=== PATIENT | female | born 1955 | race Caucasian/White ===

== ENCOUNTER 2020-06-26 11:33 | Emergency (ER) | payer MEDICARE, BC, SELFPAY ==
[2020-06-26 11:40] VITALS: BP 132/102; PULSE 92; RESP 14; TEMP 36.6; O2SAT 98; BMI 36.1
--- NOTE | 2020-06-26 11:45 | DI.RAD.S_ITS ---
PROCEDURE: XR CHEST 1V INDICATIONS: chest pain TECHNIQUE: One view of the chest was acquired. COMPARISON: None. FINDINGS: Surgical changes and devices: None. Lungs and pleura: Lungs are clear. No pleural effusions or pneumothorax. Mediastinum: Mediastinal contours appear normal. Heart size is normal. Bones and chest wall: No suspicious bony lesions. Overlying soft tissues appear unremarkable. IMPRESSION: No acute cardiopulmonary abnormalities or focal airspace disease. Dictated by: Shivam Joe M.D. on 06/26/2020 at 11:02 Approved by: Shivam Joe M.D. on 06/26/2020 at 11:03
[2020-06-26 11:59] LABS: Add Manual Diff / Slide Review NO; Basophils Absolute Auto 0 /uL (0-100); Basophils Percent Auto 0.5 % (0-2); Eosinophils Absolute Auto 100 /uL (0-450); Eosinophils Percent Auto 0.7 % (2-4); Hematocrit 45.6 % (36-46); Hemoglobin 15.5 g/dL (12.0-16.0); Lymphocytes Absolute Auto 2100 /uL (1100-4500); Lymphocytes Percent Auto 27.3 % (25-40); Mean Corpuscular HGB Conc 33.9 % (30-36); Mean Corpuscular Hemoglobin 31.5 PG (26-34); Mean Corpuscular Volume 92.9 fL (80-100); Monocytes Absolute Auto 500 /uL (0-900); Monocytes Percent Auto 6.8 % (3-14); Neutrophils Absolute Auto 4900 /uL (1500-7000); Neutrophils Percent Auto 64.7 % (50-75); Platelet Count 251 X10^3/uL (150-400); Red Blood Cell Count 4.91 X10^6/uL (4.0-5.2); Red Cell Distribution Width 13.4 % (11.6-14.8); White Blood Cell Count 7.5 X10^3/uL (4.5-11.0)
[2020-06-26 12:00] LABS: Prothrombin Time 11.8 SECONDS (10.1-12.7)
[2020-06-26 12:03] LABS: PTT Partial Thromboplastin Tim 29 SECONDS (26.4-36.2)
[2020-06-26 12:04] LABS: Alanine Aminotransferase 43 IU/L (<35); Albumin 4.5 g/dL (3.5-5.0); Albumin Globulin Ratio 1.6 (1.0-2.8); Alkaline Phosphatase 138 U/L (38-126); Aspartate Aminotransferase 46 IU/L (14-36); BUN Creatinine Ratio 21.2 (6-22); Bilirubin Total 0.8 mg/dL (0.2-1.3); Blood Urea Nitrogen 14 mg/dL (7-17); Calcium 9.9 mg/dL (8.4-10.2); Carbon Dioxide 28 mmol/L (22-32); Chloride 102 mmol/L (98-107); Creatine Kinase 117 U/L (30-135); Estimated Glomerular Filt Rate > 60.0 mL/min (>60); Globulin 2.9 g/dL (1.7-4.1); Glucose 118 mg/dL (80-110); Lipase 40 U/L (23-300); Potassium 4.2 mmol/L (3.4-5.1); Sodium 136 mmol/L (137-145); Total Protein 7.4 g/dL (6.3-8.2)
[2020-06-26 12:05] LABS: HEMOLYSIS < 15 (0-50)
[2020-06-26 12:18] LABS: Troponin I < 0.012 ng/mL (0.01-0.034)
[2020-06-26 12:19] LABS: CKMB % Relative Index 1.8 % (1.5-5.0); Creatine Kinase MB 2.12 ng/mL (<2.37)
[2020-06-26 12:24] VITALS: BP 132/102; PULSE 79; RESP 23; O2SAT 96
[2020-06-26 14:08] LABS: Troponin I < 0.012 ng/mL (0.01-0.034)
--- NOTE | 2020-06-26 14:15 | ED_ITS ---
HPI - Chest Pain <Lorenzo Watts DO - Last Filed: 06/28/20 00:12> General Chief Complaint: Chest Pain Stated Complaint: right sided chest pain Time Seen by Provider: 06/26/20 14:13 Source: patient Mode of arrival: Ambulatory Limitations: no limitations Related Data Allergies Allergy/AdvReac Type Severity Reaction Status Date / Time bacitracin Allergy Verified 06/26/20 11:46 [From Neosporin ([id number])] doxycycline Allergy Verified 06/26/20 11:46 neomycin Allergy Verified 06/26/20 11:46 [From Neosporin ([id number])] polymyxin B Allergy Verified 06/26/20 11:46 [From Neosporin ([id number])] <Mary Beth Jackson DO - Last Filed: 06/26/20 18:56> General Source: patient Mode of arrival: Ambulatory Limitations: no limitations History of Present Illness HPI narrative: This is a 65-year-old female comes with complaint of right-sided chest pain. Patient states that her pain is in the right axilla, radiating towards her anterior chest. Patient states she did have a fall on Tuesday. She bruised her leg after falling on a rock but has not had any chest pain in her chest until today. Patient did not think that she hit her chest or cause any injury. She does have a history of pulmonary embolism which was unprovoked with no clear cause found. She is not currently anticoagulated. Patient states that she has pleuritic chest pain, it is increased with movement particularly her right upper extremity and chest movement. She denies any fevers or chills. She has felt mildly short of breath particularly when she takes a deep breath but when resting does not feel short of breath. She denies any back pain. No nausea, no vomiting, no diaphoresis. No GI or urinary symptoms. The patient is on AcipHex for GERD losartan for hypertension and my bed trich for her urinary. Patient is not on any estrogens. She denies any tobacco. She has a history of cholecystectomy, left knee surgery in December. She does have a significant family history for father dying from a heart attack in his 40s as well as her sister and brother having heart attacks. <DO Julito Schmitt Last Filed: 06/26/20 18:56> Review of Systems ROS Unobtainable: All systems reviewed & are unremarkable except as noted in HPI and below Patient History <Lorenzo Watts DO - Last Filed: 06/28/20 00:12> Social History Smoking Status: Unknown if ever smoked Smoking Status: Unknown if ever smoked alcohol intake frequency: 0-2 drinks per day Substance Use Type: does not use Exam <Lorenzo Watts DO - Last Filed: 06/28/20 00:12> Initial Vital Signs Initial Vital Signs: Vital Signs Temperature 97.8 F 06/26/20 11:40 Pulse Rate 92 H 06/26/20 11:40 Respiratory Rate 14 06/26/20 11:40 Blood Pressure 132/102 H 06/26/20 11:40 Pulse Oximetry 98 06/26/20 11:40 <Mary Beth Jackson DO - Last Filed: 06/26/20 18:56> Narrative Exam Narrative: GENERAL: Alert and oriented x three, well-nourished female in m ild distress HEENT: Head normocephalic, atraumatic, EOMI, pupils reactive, face symmetric, moist mucous membranes NECK: Supple, full range of motion CARDIOVASCULAR: Regular rate and rhythm without murmurs, rubs or gallops. Patient has reproducible anterior chest pain on the right upper chest. RESPIRATORY: Breath sounds equal bilaterally, no wheezes rales or rhonchi. ABDOMEN: Soft, nontender. Normoactive bowel sounds all 4 quadrants. No guarding or rebound, rigidity, no mass : No CVA tenderness EXTREMITIES: Normal range of motion, no clubbing or edema. Neurovascularly intact NEUROLOGICAL: Cranial nerves II through XII grossly intact. Moving all extremities SKIN: Warm, dry, no petechiae, no rashes or lesions. Initial Vital Signs Initial Vital Signs: Vital Signs Temperature 97.8 F 06/26/20 11:40 Pulse Rate 92 H 06/26/20 11:40 Respiratory Rate 14 06/26/20 11:40 Blood Pressure 132/102 H 06/26/20 11:40 Pulse Oximetry 98 06/26/20 11:40 Course <DO Julito Vargas Last Filed: 06/28/20 00:12> Orders Ordered: Discontinued Medications Acetaminophen (Acetaminophen 325 Mg Tablet) 650 mg PO NOW ONE Stop: 04/22/21 14:51 Last Admin: 06/26/20 14:55 Dose: 650 mg Documented by: PRINCESS Vital Signs Vital signs: Vital Signs - 8 hr 06/26/20 11:40 06/26/20 12:24 06/26/20 15:05 Temperature 97.8 F Pulse Rate 92 H 79 85 Respiratory Rate 14 23 28 H Blood Pressure 132/102 H 132/102 H 188/81 H Pulse Oximetry 98 96 96 06/26/20 16:11 06/26/20 16:33 Temperature Pulse Rate 75 80 Respiratory Rate 16 16 Blood Pressure 168/75 H 177/74 H Pulse Oximetry 96 97 <Mary Beth Jackson DO - Last Filed: 06/26/20 18:56> Orders Ordered: Discontinued Medications Acetaminophen (Acetaminophen 325 Mg Tablet) 650 mg PO NOW ONE Stop: 06/26/20 14:51 Last Admin: 06/26/20 14:55 Dose: 650 mg Documented by: PRINCESS Reevaluation(s) Reevaluation #1: Reviewed patients labs, imaging and findings from today. Time: 16:18 Vital Signs Vital signs: Vital Signs - 8 hr 06/26/20 11:40 06/26/20 12:24 06/26/20 15:05 Temperature 97.8 F Pulse Rate 92 H 79 85 Respiratory Rate 14 23 28 H Blood Pressure 132/102 H 132/102 H 188/81 H Pulse Oximetry 98 96 96 06/26/20 16:11 06/26/20 16:33 Temperature Pulse Rate 75 80 Respiratory Rate 16 16 Blood Pressure 168/75 H 177/74 H Pulse Oximetry 96 97 MDM - Chest Pain <Lorenzo Watts DO - Last Filed: 06/28/20 00:12> Lab Data Result diagrams: 06/26/20 11:45 06/26/20 11:45 Labs: Lab Results 06/26/20 06/26/20 06/26/20 Range/Units 11:45 11:45 11:45 WBC 7.5 (4.5-11.0) X10^3/uL RBC 4.91 (4.0-5.2) X10^6/uL Hgb 15.5 (12.0-16.0) g/dL Hct 45.6 (36-46) % MCV 92.9 (80-100) fL MCH 31.5 (26-34) PG MCHC 33.9 (30-36) % RDW 13.4 (11.6-14.8) % Plt Count 251 (150-400) X10^3/uL Neut % (Auto) 64.7 (50-75) % Lymph % (Auto) 27.3 (25-40) % [place] % (Auto) 6.8 (3-14) % Eos % (Auto) 0.7 L (2-4) % Baso % (Auto) 0.5 (0-2) % Neut # (Auto) 4900 (0157-5813) /uL Lymph # (Auto) 2100 (6435-8236) /uL [place] # (Auto) 500 (0-900) /uL Eos # (Auto) 100 (0-450) /uL Baso # (Auto) 0 (0-100) /uL PT 11.8 (10.1-12.7) SECONDS INR 1.0 (0.9-1.3) APTT 29 (26.4-36.2) SECONDS D-Dimer (<230) ng/mL Sodium 136 L (137-145) mmol/L Potassium 4.2 (3.4-5.1) mmol/L Chloride 102 (98-107) mmol/L Carbon Dioxide 28 (22-32) mmol/L BUN 14 (7-17) mg/dL Creatinine 0.66 (0.52-1.04) mg/dL Estimated GFR > 60.0 (>60) mL/min BUN/Creatinine Ratio 21.2 (6-22) Glucose 118 H (80-110) mg/dL Calcium 9.9 (8.4-10.2) mg/dL Total Bilirubin 0.8 (0.2-1.3) mg/dL AST 46 H (14-36) IU/L ALT 43 H (<35) IU/L Alkaline Phosphatase 138 H (38-126) U/L Total Creatine Kinase 117 (30-135) U/L CK-MB (CK-2) 2.12 (<2.37) ng/mL CK-MB (CK-2) Rel Index 1.8 (1.5-5.0) % Troponin I < 0.012 (0.01-0.034) ng/mL Total Protein 7.4 (6.3-8.2) g/dL Albumin 4.5 (3.5-5.0) g/dL Globulin 2.9 (1.7-4.1) g/dL Albumin/Globulin Ratio 1.6 (1.0-2.8) Lipase 40 (23-300) U/L 06/26/20 06/26/20 Range/Units 11:53 13:40 WBC (4.5-11.0) X10^3/uL RBC (4.0-5.2) X10^6/uL Hgb (12.0-16.0) g/dL Hct (36-46) % MCV (80-100) fL MCH (26-34) PG MCHC (30-36) % RDW (11.6-14.8) % Plt Count (150-400) X10^3/uL Neut % (Auto) (50-75) % Lymph % (Auto) (25-40) % [place] % (Auto) (3-14) % Eos % (Auto) (2-4) % Baso % (Auto) (0-2) % Neut # (Auto) (4586-4019) /uL Lymph # (Auto) (6692-3402) /uL [place] # (Auto) (0-900) /uL Eos # (Auto) (0-450) /uL Baso # (Auto) (0-100) /uL PT (10.1-12.7) SECONDS INR (0.9-1.3) APTT (26.4-36.2) SECONDS D-Dimer 1389 H (<230) ng/mL Sodium (137-145) mmol/L Potassium (3.4-5.1) mmol/L Chloride (98-107) mmol/L Carbon Dioxide (22-32) mmol/L BUN (7-17) mg/dL Creatinine (0.52-1.04) mg/dL Estimated GFR (>60) mL/min BUN/Creatinine Ratio (6-22) Glucose (80-110) mg/dL Calcium (8.4-10.2) mg/dL Total Bilirubin (0.2-1.3) mg/dL AST (14-36) IU/L ALT (<35) IU/L Alkaline Phosphatase (38-126) U/L Total Creatine Kinase (30-135) U/L CK-MB (CK-2) (<2.37) ng/mL CK-MB (CK-2) Rel Index (1.5-5.0) % Troponin I < 0.012 (0.01-0.034) ng/mL Total Protein (6.3-8.2) g/dL Albumin (3.5-5.0) g/dL Globulin (1.7-4.1) g/dL Albumin/Globulin Ratio (1.0-2.8) Lipase (23-300) U/L Imaging Data Chest x-ray: Radiologist's Impression: [address] [id number] ReportSigned Patient: Kajal Hanley#: [id number]: 3Acct:[id number]/Sex: 65 / FDate of Service: 06/26/20Loc: EDAccession Number: [id number] Procedure: XR chest 1V Ordering Provider: Mary Beth Jackson D.O. PROCEDURE: XR CHEST 1V INDICATIONS: chest pain TECHNIQUE: One view of the chest was acquired. COMPARISON: None. FINDINGS: Surgical changes and devices: None. Lungs and pleura: Lungs are clear. No pleural effusions or pneumothorax. Mediastinum: Mediastinal contours appear normal. Heart size is normal. Bones and chest wall: No suspicious bony lesions. Overlying soft tissues appear unremarkable. IMPRESSION: No acute cardiopulmonary abnormalities or focal airspace disease. Dictated by: Shivam Joe M.D. on 06/26/2020 at 11:02 Approved by: Shivam Joe M.D. on 06/26/2020 at 11:03 <Mary Beth Jackson, - Last Filed: 06/26/20 18:56> Lab Data Attestation: I reviewed the patient's lab results. Labs: Lab Results 06/26/20 06/26/20 06/26/20 Range/Units 11:45 11:45 11:45 WBC 7.5 (4.5-11.0) X10^3/uL RBC 4.91 (4.0-5.2) X10^6/uL Hgb 15.5 (12.0-16.0) g/dL Hct 45.6 (36-46) % MCV 92.9 (80-100) fL MCH 31.5 (26-34) PG MCHC 33.9 (30-36) % RDW 13.4 (11.6-14.8) % Plt Count 251 (150-400) X10^3/uL Neut % (Auto) 64.7 (50-75) % Lymph % (Auto) 27.3 (25-40) % [place] % (Auto) 6.8 (3-14) % Eos % (Auto) 0.7 L (2-4) % Baso % (Auto) 0.5 (0-2) % Neut # (Auto) 4900 (7789-8977) /uL Lymph # (Auto) 2100 (9397-0269) /uL [place] # (Auto) 500 (0-900) /uL Eos # (Auto) 100 (0-450) /uL Baso # (Auto) 0 (0-100) /uL PT 11.8 (10.1-12.7) SECONDS INR 1.0 (0.9-1.3) APTT 29 (26.4-36.2) SECONDS D-Dimer (<230) ng/mL Sodium 136 L (137-145) mmol/L Potassium 4.2 (3.4-5.1) mmol/L Chloride 102 (98-107) mmol/L Carbon Dioxide 28 (22-32) mmol/L BUN 14 (7-17) mg/dL Creatinine 0.66 (0.52-1.04) mg/dL Estimated GFR > 60.0 (>60) mL/min BUN/Creatinine Ratio 21.2 (6-22) Glucose 118 H (80-110) mg/dL Calcium 9.9 (8.4-10.2) mg/dL Total Bilirubin 0.8 (0.2-1.3) mg/dL AST 46 H (14-36) IU/L ALT 43 H (<35) IU/L Alkaline Phosphatase 138 H (38-126) U/L Total Creatine Kinase 117 (30-135) U/L CK-MB (CK-2) 2.12 (<2.37) ng/mL CK-MB (CK-2) Rel Index 1.8 (1.5-5.0) % Troponin I < 0.012 (0.01-0.034) ng/mL Total Protein 7.4 (6.3-8.2) g/dL Albumin 4.5 (3.5-5.0) g/dL Globulin 2.9 (1.7-4.1) g/dL Albumin/Globulin Ratio 1.6 (1.0-2.8) Lipase 40 (23-300) U/L 06/26/20 06/26/20 Range/Units 11:53 13:40 WBC (4.5-11.0) X10^3/uL RBC (4.0-5.2) X10^6/uL Hgb (12.0-16.0) g/dL Hct (36-46) % MCV (80-100) fL MCH (26-34) PG MCHC (30-36) % RDW (11.6-14.8) % Plt Count (150-400) X10^3/uL Neut % (Auto) (50-75) % Lymph % (Auto) (25-40) % [place] % (Auto) (3-14) % Eos % (Auto) (2-4) % Baso % (Auto) (0-2) % Neut # (Auto) (6015-3513) /uL Lymph # (Auto) (8869-9956) /uL [place] # (Auto) (0-900) /uL Eos # (Auto) (0-450) /uL Baso # (Auto) (0-100) /uL PT (10.1-12.7) SECONDS INR (0.9-1.3) APTT (26.4-36.2) SECONDS D-Dimer 1389 H (<230) ng/mL Sodium (137-145) mmol/L Potassium (3.4-5.1) mmol/L Chloride (98-107) mmol/L Carbon Dioxide (22-32) mmol/L BUN (7-17) mg/dL Creatinine (0.52-1.04) mg/dL Estimated GFR (>60) mL/min BUN/Creatinine Ratio (6-22) Glucose (80-110) mg/dL Calcium (8.4-10.2) mg/dL Total Bilirubin (0.2-1.3) mg/dL AST (14-36) IU/L ALT (<35) IU/L Alkaline Phosphatase (38-126) U/L Total Creatine Kinase (30-135) U/L CK-MB (CK-2) (<2.37) ng/mL CK-MB (CK-2) Rel Index (1.5-5.0) % Troponin I < 0.012 (0.01-0.034) ng/mL Total Protein (6.3-8.2) g/dL Albumin (3.5-5.0) g/dL Globulin (1.7-4.1) g/dL Albumin/Globulin Ratio (1.0-2.8) Lipase (23-300) U/L Imaging Data Chest x-ray: Radiologist's Impression: [address] [id number] ReportSigned Patient: Kajal Hanley#: [id number]: 1955cct:[id number]/Sex: 4 7 / FDate of Service: 06/26/20Loc: EDAccession Number: [id number] Procedure: XR chest 1V Ordering Provider: Mary Beth Jackson D.O. PROCEDURE: XR CHEST 1V INDICATIONS: chest pain TECHNIQUE: One view of the chest was acquired. COMPARISON: None. FINDINGS: Surgical changes and devices: None. Lungs and pleura: Lungs are clear. No pleural effusions or pneumothorax. Mediastinum: Mediastinal contours appear normal. Heart size is normal. Bones and chest wall: No suspicious bony lesions. Overlying soft tissues appear unremarkable. IMPRESSION: No acute cardiopulmonary abnormalities or focal airspace disease. Dictated by: Shivam Joe M.D. on 06/26/2020 at 11:02 Approved by: Shivam Joe M.D. on 06/26/2020 at 11:03 CT scan - chest: Radiologist's Impression: [address] [id number] Scan ReportSigned Patient: Kajal Hanley#: [id number]: 3Acct:[id number]/Sex: 65 / FDate of Service: 06/26/20Loc: EDAccession Number: [id number] Procedure: CT angio chest PE protocol Ordering Provider: Mary Beth Jackson D.O. PROCEDURE: CT ANGIO CHEST PE PROTOCOL INDICATIONS: chest pain, fall Tuesday w/ no pain, Hx of unprovoked PE TECHNIQUE: After the administration of intravenous contrast, 2 mm thick sections acquired from the pulmonary apices to the posterior costophrenic angles. 3-dimensional maximum intensity projection (MIP) coronal and sagittal reformats were then acquired through the thorax. For radiation dose reduction, the following was used: automated exposure control, adjustment of mA and/or kV according to patient size. COMPARISON: None. FINDINGS: Image quality: There is suboptimal timing of contrast bolus limiting evaluation of the pulmonary arteries. The pulmonary arteries were adequately visualized to level of the distal lobar pulmonary arteries. Pulmonary arteries: Pulmonary arteries are normal in size, and demonstrate no intraluminal filling defects to suggest central pulmonary embolism. Lungs and pleura: Lungs are clear. No pleural effusions or pneumothorax. Central and peripheral airways are patent. Mediastinum: Heart size is enlarged without pericardial effusion. Mild scattered atherosclerotic calcifications of the coronary arteries are noted. No mediastinal or hilar adenopathy. Thoracic aorta is normal in caliber and enhancement. Esophagus is normal in caliber, without hiatal hernia. Bones and chest wall: No suspicious bony lesions. Ribs and thoracic spine appear intact throughout. Thyroid gland is unremarkable. No axillary or supraclavicular adenopathy. Abdomen: Visualized upper abdominal solid organs appear normal in the early arterial phase of enhancement. Status post cholecystectomy. IMPRESSION: 1. No acute pulmonary emboli identified. However, study is limited secondary to suboptimal timing of contrast bolus. No evidence for acute right-sided heart strain. 2. Mild cardiomegaly. No acute cardiopulmonary abnormalities seen. 3. No rib fractures identified. No acute osseous abnormalities. 4. Status post cholecystectomy. Dictated by: Shivam Joe M.D. on 06/26/2020 at 14:34 Approved by: Shivam Joe M.D. on 06/26/2020 at 14:49 ECG Data Attestation: I personally reviewed and interpreted this ECG as follows: Interpretation: Normal sinus rhythm rate 82 MT 158, QRS of [address] elevation or depression. MDM Narrative Medical decision making narrative: This is a pleasant 65-year-old female comes in with right-sided chest pain with a recent fall but patient does not recall striking or causing any trauma or pain to her chest. Patient does have a history of unprovoked PE as well as a significant cardiac family history. EKG and troponin are negative x2 with reproducible chest pain but patient's D-dimer is 1300 and she is no longer anticoagulated. Patient does have some mild elevation in her LFTs, she is nontender on physical exam in her right upper quadrant. She has been told in the past she had some mild elevation but not with her most recent lab draw in December. Patient's CT does not show any large PE to the level of the distal lobar arteries. Patient shows an enlarged heart without pericardial effusion. With patient has reproducible right-sided pain with recent fall my suspicion for cardiac event is low. Discussed with patient she feels comfortable returning home. She feel comfortable continuing with Tylenol as needed and asked to return if she had any new, worsening or concerning symptoms. Patient does state that she follow up with Hematology and she did have a genetic workup which was ultimately negative. Discharge Plan Departure Patient Disposition: Home Clinical Impression: Chest pain Instructions: DI for Atypical Chest Pain Activity Restrictions/Additional Instructions: Follow up with your physician for recheck. Call for an appointment. You may take Tylenol up to 1000mg every 8 hours and/or ibuprofen up to 600mg every 6 hours as needed for pain. Your imaging does not show any obvious or large pulmonary emboli. Your labs do show an elevation of your AST, ALT and alkaline phosphatase which are mildly elevated and I would recommend follow-up with your physician for recheck in the next several weeks. Please return for new or worsening chest pain, shortness of breath, lightheadedness, passing out, new swelling of her extremity, redness, rash or skin changes on your chest, persistent vomiting, or other new or concerning symptoms.
[2020-06-26 14:40] LABS: D Dimer 1389 ng/mL (<230)
--- NOTE | 2020-06-26 14:50 | DI.CT.S_ITS ---
PROCEDURE: CT ANGIO CHEST PE PROTOCOL INDICATIONS: chest pain, fall Tuesday w/ no pain, Hx of unprovoked PE TECHNIQUE: After the administration of intravenous contrast, 2 mm thick sections acquired from the pulmonary apices to the posterior costophrenic angles. 3-dimensional maximum intensity projection (MIP) coronal and sagittal reformats were then acquired through the thorax. For radiation dose reduction, the following was used: automated exposure control, adjustment of mA and/or kV according to patient size. COMPARISON: None. FINDINGS: Image quality: There is suboptimal timing of contrast bolus limiting evaluation of the pulmonary arteries. The pulmonary arteries were adequately visualized to level of the distal lobar pulmonary arteries. Pulmonary arteries: Pulmonary arteries are normal in size, and demonstrate no intraluminal filling defects to suggest central pulmonary embolism. Lungs and pleura: Lungs are clear. No pleural effusions or pneumothorax. Central and peripheral airways are patent. Mediastinum: Heart size is enlarged without pericardial effusion. Mild scattered atherosclerotic calcifications of the coronary arteries are noted. No mediastinal or hilar adenopathy. Thoracic aorta is normal in caliber and enhancement. Esophagus is normal in caliber, without hiatal hernia. Bones and chest wall: No suspicious bony lesions. Ribs and thoracic spine appear intact throughout. Thyroid gland is unremarkable. No axillary or supraclavicular adenopathy. Abdomen: Visualized upper abdominal solid organs appear normal in the early arterial phase of enhancement. Status post cholecystectomy. IMPRESSION: 1. No acute pulmonary emboli identified. However, study is limited secondary to suboptimal timing of contrast bolus. No evidence for acute right-sided heart strain. 2. Mild cardiomegaly. No acute cardiopulmonary abnormalities seen. 3. No rib fractures identified. No acute osseous abnormalities. 4. Status post cholecystectomy. Dictated by: Shivam Joe M.D. on 06/26/2020 at 14:34 Approved by: Shivam Joe M.D. on 06/26/2020 at 14:49
[2020-06-26] MEDS: ACETAMINOPHEN 325 MG TABLET 650 MG PO (14:55)
[2020-06-26 15:05] VITALS: BP 188/81; PULSE 85; RESP 28; O2SAT 96
[2020-06-26 16:11] VITALS: BP 168/75; PULSE 75; RESP 16; O2SAT 96
[2020-06-26 16:33] VITALS: BP 177/74; PULSE 80; RESP 16; O2SAT 97
== END 2020-06-26 16:34 | disposition home or self-care (01) ==
PROVIDERS: Emergency Medicine; Emergency Provider Emergency Medicine
DX: R07.9 Chest pain, unspecified (principal)
CPT/HCPCS: 36415; 71045; 71275; 80053; 82550; 82553; 83690; 84484; 85025; 85379; 85610; 85730; 93005; 93010; 99284; Q9967

== ENCOUNTER → 2022-06-17 09:11 | Outpatient (CLI) | payer MEDICARE, BC, SELFPAY ==
--- NOTE | 2022-06-17 | DI.MRI.S_ITS ---
PROCEDURE: MR ANKLE RT WO CON INDICATIONS: joint disorders, right ankle and foot TECHNIQUE: Noncontrast sagittal T1 spin echo and T2 fast spin echo with fat saturation, axial proton density fast spin echo and T2 fast spin echo with fat saturation, coronal T1 spin echo and T2 fast spin echo with fat saturation through the ankle/hindfoot. COMPARISON: None. FINDINGS: Image quality: Excellent. Bones and joints: Midfoot and hindfoot joint osteoarthritic changes are seen with joint space narrowing, subchondral sclerosis and small marginal osteophyte formation more notably involving TMT joints. Well-defined plantar calcaneal enthesophyte is seen. No fracture or dislocation. Small osteochondral injury involving lateral talar dome weight-bearing portion measures 4 x 5 mm in size is seen with mild surrounding edema. Small joint effusion, no gross loose bodies. Medial structures: The posterior tibialis is thickened at the level of tibiotalar joint with small amount of fluid distending tendon sheath. The flexor digitorum longus, and flexor hallucis longus tendons are intact. The posterior tibial neurovascular bundle appears normal within the tarsal tunnel, without extrinsic mass effect. The deltoid ligament is thickened. The spring ligament is intact. Lateral structures: The anterior talofibular, calcaneofibular, and posterior talofibular ligaments appear attenuated with intrasubstance T2 hyperintense signal. More superiorly, the anterior and posterior tibiofibular ligaments appear intact, as is the intermalleolar ligament. The tibiofibular syndesmosis is normal in width at 2 mm or less. The peroneus longus and brevis tendons demonstrate normal location and morphology. Adjacent bony peroneal tubercle and retrotrochlear prominence are normal in size. The sinus tarsi demonstrates normal fatty signal, without edema, fibrosis, or cyst formation. Visualized sinus tarsi components (cervical ligament, interosseous talocalcaneal ligament, roots of the inferior extensor retinaculum) appear normal. The calcaneonavicular and calcaneocuboid components of the bifurcate ligament appear intact. The dorsal calcaneocuboid ligament appears intact. Anterior structures: The tibialis anterior and extensor hallucis longus tendons are intact. Fluid is seen distending the extensor digitorum longus tendon sheath at the level of tibiotalar joint and distal talus. The dorsal talonavicular ligament appears intact. Posterior and plantar structures: Distal Achilles tendinosis at its posterior calcaneal insertion is seen. Medial and lateral bands of the plantar fascia are of normal thickness. No abductor digiti quinti muscle atrophy to suggest Wilks neuropathy. IMPRESSION: 1. Low-grade tenosynovitis involving posterior tibialis tendon at the level of talonavicular joint. 2. Low to moderate grade tenosynovitis involving extensor digitorum longus tendon at the level of tibiotalar joint. 3. Distal Achilles tendinosis at its posterior calcaneal insertion. No Achilles tendon rupture. 4. Midfoot and hindfoot joint osteoarthritis. No fracture or dislocation. Small osteochondral injury of talar dome as above. 5. Low-grade deltoid ligament sprain. Low-grade sprain/intrasubstance partial-thickness tear involving anterior and posterior talofibular ligaments and calcaneofibular ligament. Dictated by: Pepe Arce M.D. on 06/17/2022 at 11:07 Approved by: Pepe Arce M.D. on 06/17/2022 at 11:24
== END ==
PROVIDERS: PCP Nurse Practitioner Family; Referring Provider Orthopaedic Surgery Foot and Ankle Surgery; Visit Provider Orthopaedic Surgery Foot and Ankle Surgery
DX: S93.421A Sprain of deltoid ligament of right ankle, initial encounter (principal); S93.491A Sprain of other ligament of right ankle, initial encounter; S93.411A Sprain of calcaneofibular ligament of right ankle, initial encounter; M19.071 Primary osteoarthritis, right ankle and foot; M65.871 Other synovitis and tenosynovitis, right ankle and foot; M25.871 Other specified joint disorders, right ankle and foot
CPT/HCPCS: 73721

== ENCOUNTER 2022-07-08 18:24 | Emergency (ER) | payer MEDICARE, BC, SELFPAY ==
[2022-07-08] VITALS (7 sets, daily range): BP systolic 133–161; BP diastolic 62–89; PULSE 78–95; RESP 18–20; TEMP 37.1; O2SAT 94–98; BMI 36.1
--- NOTE | 2022-07-08 19:41 | DI.CT.S_ITS ---
PROCEDURE: CT ABDOMEN PELVIS W CON INDICATIONS: Right lower quadrant abdominal pain TECHNIQUE: After the administration of IV contrast, axial sections were acquired from the lung bases to the pubic symphysis. Coronal and sagittal reformats were performed. For radiation dose reduction, the following was used: automated exposure control, adjustment of mA and/or kV according to patient size. COMPARISON: None. FINDINGS: Image quality: Excellent. Lung bases: Unremarkable. Heart: Heart is normal in size. There is a small hiatal hernia. ABDOMEN: Liver: No mass lesion. Gallbladder: Surgically absent. Biliary ducts: No biliary ductal dilatation. Pancreas: Unremarkable. Spleen: Normal in size. Adrenal Glands: No adrenal nodules. Kidneys and Ureters: No hydronephrosis. There is a simple appearing right renal cortical cyst. Stomach and Bowel: Stomach and small bowel are normal in caliber and wall thickness. The appendix is normal. There is colonic diverticulosis with associated diverticular and segmental colonic wall thickening in the sigmoid colon as well as pericolonic fat stranding consistent with acute diverticulitis. No associated macroscopic free air or diverticular abscess. Peritoneum: No abnormal intraperitoneal fluid. No free air. Ventral Wall: No hernia. Abdominal Nodes: No retroperitoneal or mesenteric adenopathy by size criteria. Vessels: Aorta and inferior vena cava are normal in size. PELVIS: Pelvic Organs: Unremarkable. Bladder: Urinary bladder is nondistended. Pelvic Nodes: No enlarged lymph nodes. Miscellaneous: No inguinal hernias are seen. Bones: Visualized osseous structures demonstrate no suspicious focal lesions. IMPRESSION: 1. Acute sigmoid diverticulitis without evidence of diverticular abscess or macroscopic free air. 2. No evidence of appendicitis. Dictated by: Cristian Escobar M.D. on 07/08/2022 at 20:34 Approved by: Cristian Escobar M.D. on 07/08/2022 at 20:36
[2022-07-08 19:48] LABS: Add Manual Diff / Slide Review NO; Basophils Absolute Auto 0 /uL (0-100); Basophils Percent Auto 0.4 % (0-2); Eosinophils Absolute Auto 0 /uL (0-450); Eosinophils Percent Auto 0.2 % (2-4); Hematocrit 43.8 % (36-46); Hemoglobin 15.2 g/dL (12.0-16.0); Lymphocytes Absolute Auto 2500 /uL (1100-4500); Lymphocytes Percent Auto 19.6 % (25-40); Mean Corpuscular HGB Conc 34.7 % (30-36); Mean Corpuscular Hemoglobin 32.6 PG (26-34); Monocytes Absolute Auto 1200 /uL (0-900); Monocytes Percent Auto 9.2 % (3-14); Neutrophils Absolute Auto 8900 /uL (1500-7000); Neutrophils Percent Auto 70.6 % (50-75); Platelet Count 224 X10^3/uL (150-400); Red Blood Cell Count 4.66 X10^6/uL (4.0-5.2); Red Cell Distribution Width 13.7 % (11.6-14.8); White Blood Cell Count 12.5 X10^3/uL (4.5-11.0)
[2022-07-08 19:56] LABS: Alanine Aminotransferase 49 IU/L (<35); Albumin 4.3 g/dL (3.5-5.0); Albumin Globulin Ratio 1.3 (1.0-2.8); Alkaline Phosphatase 166 U/L (38-126); Aspartate Aminotransferase 50 IU/L (14-36); BUN Creatinine Ratio 18.3 (6-22); Bilirubin Total 1.4 mg/dL (0.2-1.3); Blood Urea Nitrogen 13 mg/dL (7-17); Calcium 9.4 mg/dL (8.4-10.2); Carbon Dioxide 27 mmol/L (22-32); Chloride 100 mmol/L (98-107); Estimated Glomerular Filt Rate > 60 mL/min (>60); Globulin 3.2 g/dL (1.7-4.1); Glucose 114 mg/dL (80-110); HEMOLYSIS 30 (0-50); Lipase 19 U/L (23-300); Potassium 3.8 mmol/L (3.4-5.1); Sodium 136 mmol/L (137-145); Total Protein 7.5 g/dL (6.3-8.2)
[2022-07-08 22:11] LABS: Ictotest Urine Negative (Negative); RBC Urine 5-10/HPF (0-5/HPF); Transitional Epi Cells Urine 1-5/HPF (0-5/HPF); WBC Urine 10-30/HPF (0-5/HPF)
[2022-07-08 22:12] LABS: Bacteria Urine Few (2-10); Culture Indicated Urine Specimen Cultured; Squamous Epithelial Cell Urine 5-10 /HPF (0-5/HPF)
--- NOTE | 2022-07-08 23:33 | ED.ABDPAIN ---
HPI - Abdominal Pain General Chief Complaint: Abdominal Pain Stated Complaint: sent by MD for scans, abd pain Time Seen by Provider: 07/08/22 19:49 Source: patient Mode of arrival: Ambulatory History of Present Illness HPI narrative: This is a 67-year-old female with history of hypertension, bladder issues and GERD. Patient has had prior episodes of diverticulitis she started having pain in her right lower quadrant which he states is similar to the episode she is had in the past. It has been going on for about a week it has been slowly increasing and was much worse last night with quite a bit of cramping. She denies fevers or chills. She is had some decreased appetite, she is had nausea but no vomiting. She denies any upper abdominal pain. She states it started more in the right and has crossed over to both sides. She is had some very mild back pain but states it is minimal. She denies dysuria, urgency or frequency. She was having quite a bit of loose stools yesterday followed by some watery stools but no black or blood. She is only had a few small solid héctor of stool today. Patient states she is on losartan, Mybetriq and AcipHex. She is had a cholecystectomy and had both her knees replaced. She is allergic to lisinopril, Neosporin and doxycycline. She does drink alcohol couple times a week, no tobacco or illicit. She lives on [address]. She was seen there and after her exam they wanted her to have a CT scan for evaluation. Related Data Previous Rx's Medication Instructions Recorded amoxicillin 875 mg-potassium 1 tab PO BID #20 tabs 07/08/22 clavulanate 125 mg tablet amoxicillin 875 mg-potassium 1 tab PO BID #20 tabs 07/08/22 clavulanate 125 mg tablet Allergies Allergy/AdvReac Type Severity Reaction Status Date / Time bacitracin Allergy Verified 06/26/20 11:46 [From Neosporin ([id number])] doxycycline Allergy Verified 06/26/20 11:46 neomycin Allergy Verified 06/26/20 11:46 [From Neosporin ([id number])] polymyxin B Allergy Verified 06/26/20 11:46 [From Neosporin ([id number])] Review of Systems Review of Systems ROS Unobtainable: All systems reviewed & are unremarkable except as noted in HPI and below Patient History Social History Smoking Status: Unknown if ever smoked Smoking Status: Unknown if ever smoked alcohol intake frequency: a few times a week Substance Use Type: does not use Exam Narrative Exam Narrative: GENERAL: Alert and oriented x three, female in mild distress. HEENT: Head normocephalic, atraumatic, EOMI, pupils reactive, face symmetric, moist mucous membranes NECK: Supple, full range of motion CARDIOVASCULAR: Regular rate and rhythm without murmurs, rubs or gallops. RESPIRATORY: Breath sounds equal bilaterally, no wheezes rales or rhonchi. ABDOMEN: Soft, mild generalized tenderness but greatest in the right lower suprapubic area. Normoactive bowel sounds all 4 quadrants. No guarding or rebound, rigidity, no mass : No CVA tenderness EXTREMITIES: Normal range of motion, no clubbing or edema. Neurovascularly intact NEUROLOGICAL: Cranial nerves II through XII grossly intact. Moving all extremities SKIN: Warm, dry, no petechiae, no rashes or lesions. Initial Vital Signs Initial Vital Signs: Vital Signs Temperature 98.8 F 07/08/22 19:03 Pulse Rate 95 H 07/08/22 19:03 Respiratory Rate 18 07/08/22 19:03 Blood Pressure 161/89 H 07/08/22 19:03 Pulse Oximetry 98 07/08/22 19:03 Oxygen Delivery Method Room Air 07/08/22 19:03 Course Orders Ordered: Discontinued Medications Amoxicillin/Clavulanate Potassium (Amoxicillin/Clav 875/125 Mg) 1 tab PO NOW ONE Stop: 07/08/22 23:46 Last Admin: 07/08/22 23:55 Dose: 1 tab Documented By: MARY Tramadol HCl (Tramadol 50 Mg Prepack) 1 bottle MISC SEEINSTR ONE Stop: 07/08/22 23:46 Last Admin: 07/08/22 23:54 Dose: 1 bottle Documented By: MARY Vital Signs Vital signs: Vital Signs - 8 hr 07/08/22 19:03 07/08/22 21:13 07/08/22 21:13 Temperature 98.8 F Pulse Rate 95 H 86 Respiratory Rate 18 Blood Pressure 161/89 H 146/68 H Pulse Oximetry 98 96 Oxygen Delivery Method Room Air 07/08/22 21:30 07/08/22 21:30 07/08/22 22:00 Temperature Pulse Rate 82 Respiratory Rate 20 Blood Pressure 134/64 133/69 Pulse Oximetry 96 Oxygen Delivery Method Room Air 07/08/22 22:00 Temperature Pulse Rate 79 Respiratory Rate 18 Blood Pressure Pulse Oximetry 96 Oxygen Delivery Method MDM - Abdominal Pain Lab Data 07/08/22 19:22 07/08/22 19:22 Labs: Lab Results 07/08/22 07/08/22 07/08/22 Range/Units 19:22 19:22 20:11 WBC 12.5 H (4.5-11.0) X10^3/uL RBC 4.66 (4.0-5.2) X10^6/uL Hgb 15.2 (12.0-16.0) g/dL Hct 43.8 (36-46) % MCV 94.0 (80-100) fL MCH 32.6 (26-34) PG MCHC 34.7 (30-36) % RDW 13.7 (11.6-14.8) % Plt Count 224 (150-400) X10^3/uL Neut % (Auto) 70.6 (50-75) % Lymph % (Auto) 19.6 L (25-40) % [place] % (Auto) 9.2 (3-14) % Eos % (Auto) 0.2 L (2-4) % Baso % (Auto) 0.4 (0-2) % Neut # (Auto) 8900 H (1626-4225) /uL Lymph # (Auto) 2500 (3976-2046) /uL [place] # (Auto) 1200 H (0-900) /uL Eos # (Auto) 0 (0-450) /uL Baso # (Auto) 0 (0-100) /uL Sodium 136 L (137-145) mmol/L Potassium 3.8 (3.4-5.1) mmol/L Chloride 100 (98-107) mmol/L Carbon Dioxide 27 (22-32) mmol/L BUN 13 (7-17) mg/dL Creatinine 0.71 (0.52-1.04) mg/dL Estimated GFR > 60 (>60) mL/min BUN/Creatinine Ratio 18.3 (6-22) Glucose 114 H (80-110) mg/dL Calcium 9.4 (8.4-10.2) mg/dL Total Bilirubin 1.4 H (0.2-1.3) mg/dL AST 50 H (14-36) IU/L ALT 49 H (<35) IU/L Alkaline Phosphatase 166 H (38-126) U/L Total Protein 7.5 (6.3-8.2) g/dL Albumin 4.3 (3.5-5.0) g/dL Globulin 3.2 (1.7-4.1) g/dL Albumin/Globulin Ratio 1.3 (1.0-2.8) Lipase 19 L (23-300) U/L Ur Bilirubin Confirm Negative (Negative) Urine RBC 5-10/hpf H (0-5/HPF) Urine WBC 10-30/hpf H (0-5/HPF) Ur Squamous Epith Cells 5-10 /hpf H (0-5/HPF) Ur Transition Epith Cell 1-5/hpf (0-5/HPF) Urine Bacteria Few (2-10) H (None) Ur Culture Indicated? Specimen cultured Point of care testing: Urine Dip Bedside Urine Glucose Negative Bedside Urine Bilirubin + 1 Bedside Urine Ketone + 15 Urine Specific [place] 1.025 Bedside Urine Occult Blood +++ Bedside Urine pH 6 Bedside Urine Protein +/- 15 Bedside Urine Urobilinogen - Negative Bedside Urine Nitrite - Negative Bedside Urine Leukocytes - Negative Esterase Imaging Data CT scan - abdomen/pelvis: Radiologist's Impression: [address] [address] [address] Scan Report Signed Patient: Steffanie Hanley MR#: [id number] : 1955 Acct:[id number] Age/Sex: 67 / F Date of Service: 07/08/22 Loc: ED Accession Number: [id number] ?? Procedure: CT abdomen pelvis w con Ordering Provider: Nasim Burks D.O. PROCEDURE:? CT ABDOMEN PELVIS W CON ? INDICATIONS:? Right lower quadrant abdominal pain ? TECHNIQUE:? After the administration of IV contrast, axial sections were acquired from the lung bases to the pubic symphysis.? Coronal and sagittal reformats were performed.? For radiation dose reduction, the following was used:? automated exposure control, adjustment of mA and/or kV according to patient size. ? COMPARISON:? None. ? FINDINGS:? Image quality:? Excellent.? ? Lung bases:? Unremarkable.? ? Heart:? Heart is normal in size.? There is a small hiatal hernia. ? ? ABDOMEN: Liver:? No mass lesion. Gallbladder:? Surgically absent. Biliary ducts:? No biliary ductal dilatation.? ? Pancreas:? Unremarkable.? ? Spleen:? Normal in size.? ? Adrenal Glands:? No adrenal nodules.? ? Kidneys and Ureters:? No hydronephrosis.? There is a simple appearing right renal cortical cyst. ? ? Stomach and Bowel:? Stomach and small bowel are normal in caliber and wall thickness.? The appendix is normal.? There is colonic diverticulosis with associated diverticular and segmental colonic wall thickening in the sigmoid colon as well as pericolonic fat stranding consistent with acute diverticulitis.? No associated macroscopic free air or diverticular abscess.? Peritoneum:? No abnormal intraperitoneal fluid.? No free air.? ? Ventral Wall: ? No hernia.? Abdominal Nodes:? No retroperitoneal or mesenteric adenopathy by size criteria.? Vessels:? Aorta and inferior vena cava are normal in size.? ? PELVIS: Pelvic Organs:? Unremarkable.? ? Bladder:? Urinary bladder is nondistended.? ? Pelvic Nodes: No enlarged lymph nodes.? Miscellaneous: No inguinal hernias are seen. ? ? ? Bones:? Visualized osseous structures demonstrate no suspicious focal lesions. ? IMPRESSION:? ? 1. Acute sigmoid diverticulitis without evidence of diverticular abscess or macroscopic free air. ? 2. No evidence of appendicitis.? ? ? Dictated by: Cristian Escobar M.D. on 07/08/2022 at 20:34 ? ? Approved by: Cristian Escobar M.D. on 07/08/2022 at 20:36?? MDM Narrative Medical decision making narrative: 67-year-old female sent for evaluation for right lower quadrant abdominal patient has a history of diverticulitis she states she is had that symptoms on that side before. She has some generalized tenderness but greatest in the right lower quadrant. Patient has been afebrile no signs of sepsis. Because of her right lower quadrant she is had cholecystectomy but still does have her appendix. Bilirubin is elevated, she does have diverticulitis without perforation or abscess on imaging no signs of appendicitis. Discussed with patient she notes that last time she would diverticulitis her bilirubin was elevated and slowly came down she does not have any right upper quadrant tenderness or pain at this time. Plan for antibiotics, prepack for some pain medication and return precautions. Discharge Plan Departure Patient Disposition: Home Clinical Impression: Diverticulitis, Elevated bilirubin Instructions: DI for Diverticulitis Activity Restrictions/Additional Instructions: Follow-up with your physician for recheck, you do have a sigmoid diverticulitis without any abscess or perforation on your imaging. Your bilirubin is elevated today, please follow-up to make sure that it returns to normal. Take antibiotics until completely gone. You can take 1-2 tablets of tramadol every 6 hours as needed for pain. This medication can make you sleepy do not drive, perform hazardous activities or make any major decisions while taking it. This medication will make you constipated please take a stool softener once to twice daily until stools are soft and regular. Prescription sent to [facility] in [place] Please return for fevers, new or worsening abdominal back or flank pain, persistent vomiting, black or bloody stools, lightheadedness or passing out or other new or concerning changes. Prescriptions: New amoxicillin-pot clavulanate 875-125 mg tablet 1 tab PO BID Qty: 20 0RF amoxicillin-pot clavulanate 875-125 mg tablet 1 tab PO BID Qty: 20 0RF Stand Alone Forms: Patient Portal/API
[2022-07-08] MEDS: TRAMADOL 50 MG PREPACK 1 BOTTLE MISC (23:54)
[2022-07-08] MEDS: AMOXICILLIN/CLAV 875/125 MG 1 TAB PO (23:55)
--- NOTE | 2022-07-09 09:56 | PC.NURSE ---
Prescription unable to be filled by [facility]. Pt requested it be called into [facility] pharmacy. Called in. Confirmed allergies w/ patient. Encouraged pt to call back if any difficulty w/ prescription.
== END 2022-07-09 00:02 | disposition home or self-care (01) ==
PROVIDERS: Emergency Medicine; Emergency Provider Emergency Medicine
DX: K57.92 Diverticulitis of intestine, part unspecified, without perforation or abscess without bleeding (principal); R17 Unspecified jaundice
CPT/HCPCS: 36415; 74177; 80053; 81003; 81015; 83690; 85025; 87086; 99283; 99284; Q9967

== ENCOUNTER 2023-08-13 10:40 | Emergency (ER) | payer MEDICARE, BC, SELFPAY ==
--- NOTE | 2023-08-13 13:05 | DI.CT.S_ITS ---
PROCEDURE: CT ANGIO CHEST PE PROTOCOL INDICATIONS: shortness of breath, F/U on labs TECHNIQUE: After the administration of intravenous contrast, 2 mm thick sections acquired from the pulmonary apices to the posterior costophrenic angles. 3-dimensional maximum intensity projection (MIP) coronal and sagittal reformats were then acquired through the thorax. For radiation dose reduction, the following was used: automated exposure control, adjustment of mA and/or kV according to patient size. COMPARISON: [facility], CT, CT ANGIO CHEST PE PROTOCOL, 06/26/2020, 14:57. FINDINGS: Image quality: There is streak artifact seen through the level of the shoulders. Pulmonary arteries: On the right, there is extensive pulmonary embolism seen, including involving the distal right main pulmonary artery. There is involvement of the proximal branches of the right upper lobe, the right middle lobe, and the right lower lobe pulmonary arteries. On the left, there is segmental and subsegmental involvement of the left lower lobe, with segmental and subsegmental involvement of the left upper lobe. The pulmonary arteries overall demonstrate normal size. Lower Neck: No enlarged lymph nodes. Thyroid: No thyroid nodules which require sonographic follow up, per consensus guidelines. Axillae: No enlarged lymph nodes. Chest Wall: Unremarkable. Bones: Age-appropriate bony degenerative changes are seen. Accentuated thoracic kyphosis is seen. Lungs and Pleura: No pneumothorax or pleural effusions. No consolidation or suspicious nodules. Heart: The right heart is slightly enlarged compared to the left. No pericardial effusion. Thoracic Vessels: No aortic aneurysm. Mediastinum and Nicole: No enlarged lymph nodes. Esophagus: No wall thickening. No significant hiatal hernia. Upper Abdomen: Visualized upper abdomen solid organs and bowel loops appear normal. On the photographic supervisor image, cholecystectomy clips are seen. IMPRESSION: Extensive pulmonary embolism is seen, which involves all 5 lobes of the lung, right worse than left. Mild right heart strain can be seen. No acute cardiopulmonary process. Additional findings: Cholecystectomy Note: Critical findings discussed by telephone with Dr. Jackson at 1:34 p.m. [place] time on August 13, 2023. Dictated by: German Zamorano M.D. on 08/13/2023 at 12:31 Approved by: German Zamorano M.D. on 08/13/2023 at 12:36
[2023-08-13] MEDS: HEPARIN 5,000 UNIT/ML VIAL 5000 UNIT IV (15:51)
[2023-08-13] MEDS: HEPARIN DRIP 25,000 UNIT/500 ML IV.SOLN 35.568 UNIT IV (15:52)
--- NOTE | 2023-08-13 16:51 | DI.ECHO.S_ITS ---
[facility]---------+ [facility] : : [address] : : [place] : : [id number] : : Phone: [phone] Echocardiogram Report + + :Name: RICHARD PALACIOS Study Date: 08/14/2023 Height: 65 in : :Hospital ReadingLocation: Weight: 218 lb : : Gender: Female BSA: 2.1 m2 : :: 1955 Age: 68 yrs BP: 155/67 mmHg: :Reason For Study: Pulmonary- Embolism : : Performed By: Lena Martino : :Referring: MAYITO BOOTH : + + Interpretation Summary The ejection fraction is estimated to be 55-60%. Grade I diastolic dysfunction. The right ventricle is mildly dilated. Right ventricular systolic function is moderately reduced. There is mild biatrial enlargement. There is mild tricuspid regurgitation. The right ventricular systolic pressure is estimated to be at least 46 mmHg based on an estimated right atrial pressure of 3 mm Hg. Procedure: A two-dimensional transthoracic echocardiogram with color flow and Doppler was performed. The study quality was technically adequate. There is no prior echocardiogram noted for this patient. The heart rate ranged between 83-88 bpm during the study. Left Ventricle: The left ventricle is normal in size and wall thickness. The ejection fraction is estimated to be 55-60%. Diastolic parameters suggest a relaxation abnormality of the left ventricle, consistent with probable normal filling pressures. Right Ventricle: The right ventricle is mildly dilated. Right ventricular systolic function is moderately reduced. Atria: There is mild biatrial enlargement. There is no Doppler evidence for an interatrial shunt. Mitral Valve: The mitral valve is normal in structure and function. There is trace mitral regurgitation. Aortic Valve: The aortic valve is trileaflet. The aortic valve opens well. There is no aortic valve stenosis. No aortic regurgitation is present. Tricuspid Valve: The tricuspid valve is normal. There is mild tricuspid regurgitation. The right ventricular systolic pressure is estimated to be at least 46 mmHg based on an estimated right atrial pressure of 3 mm Hg. Pulmonic Valve: The pulmonic valve leaflets are thin and pliable; valve motion is normal. There is mild pulmonic regurgitation. Great Vessels: The aortic root is normal size. The dimensions of the ascending aorta are normal. The IVC is of normal diameter and collapses greater than 50% with a sniff. This suggests a low right atrial pressure of 3 mm Hg. Pericardium/ Pleura There is no pericardial effusion. There is no pleural effusion. MMode/2D Measurements & Calculations LVIDd: 4.8 cm LVOT diam: 2.0 cm LVIDs: 3.0 cm Ao root diam: 3.5 cm FS: 36.8 % asc Aorta Diam: 3.6 cm IVSd: 0.95 cm Ao Arch Diam (Prox Trans): 3.4 cm LVPWd: 0.95 cm LV robles. diameter/BSA (cm/m^2): 2.3 LV sys. diameter/BSA (cm/m^2): 1.5 LA A2 area: 23.3 cm2 RA long axis: 5.5 cm LA A4 area: 21.7 cm2 RA area: 19.5 cm2 LA length (vol): 5.6 cm RA vol: 59.0 ml LA vol: 77.0 ml RA : 28.8 ml/m2 LA vol index: 37.5 ml/m2 IVC diam: 1.5 cm RVD1 (basal): 4.0 cm RVD2 (mid): 3.8 cm TAPSE: 1.3 cm Doppler Measurements & Calculations Ao V2 max: 152.4 cm/sec LVOT Max Ricardo: 97.3 cm/sec Ao V2 mean: 117.7 cm/sec LV V1 max P.8 mmHg Ao max P.3 mmHg LV V1 VTI: 20.1 cm Ao mean P.9 mmHg CARYN(I,D): 2.0 cm2 Ao V2 VTI: 32.7 cm CARYN(V,D): 2.0 cm2 sev ratio: 0.61 CARYN indexed to BSA (cm^2/m^2): 0.95 MV E max ricardo: 23.7 cm/sec TR max ricardo: 286.5 cm/sec MV A max ricardo: 96.5 cm/sec TR max P.8 mmHg MV E/A: 0.25 PA V2 max: 86.2 cm/sec Med Peak E' Ricardo: 4.2 cm/sec PA V2 mean: 56.1 cm/sec E/E' med: 5.7 PA mean P.4 mmHg Lat Peak E' Ricardo: 4.9 cm/sec PA pr(Accel): 13.9 mmHg E/E' lat: 4.9 E/e' average: 5.3 SV(LVOT): 64.0 ml Reading Physician:11:49 AM
--- NOTE | 2023-08-13 16:53 | PM.CALLCOV.1 ---
Call Coverage Note Note Date of Patient Contact: 08/13/23 Narrative of Care Provided: 68 F with multiple subsegmental PE. Possible R heart strain on CT imaging. Interventionalist at [facility] possibly recommending interventions, however would like TTE to show R heart strain but this is not available until tomorrow. If echo is unremarkable, patient can be discharged on oral anticoagulation home. The difficulty in this situation is that I discussed with [facility] and they are full at the moment and have no beds available for inpatient transfer. Should patient have abnormal echo would need to subsequently find another accepting facility which also may not be available due to lack of bed availability state wide. Given this scenario, patient can be discharged from the ER if normal echo, and if abnormal would recommend transfer. Therefore, I believe that admission for observation to [facility] actually increases patient's risk due to increased difficulty with transfer from the inpatient side. Recommend continued observation in the ER pending echocardiogram.
[2023-08-13 18:00] VITALS: BP 143/95; PULSE 71; RESP 16; O2SAT 96
[2023-08-13 18:30] VITALS: BP 168/81; PULSE 78; RESP 12; O2SAT 94
--- NOTE | 2023-08-13 18:44 | ED.GENADULT ---
HPI - General Adult <Mayito Booth DO - Last Filed: 08/15/23 07:50> General Chief complaint: Shortness of Breath/Dyspnea Stated complaint: sob, f/o on labs Time Seen by Provider: 08/13/23 16:17 Source: patient Mode of arrival: Ambulatory Related Data Home Medications Medication Instructions Recorded Confirmed losartan 25 mg tablet 25 mg PO DAILY 08/14/23 08/14/23 Previous Rx's Medication Instructions Recorded rivaroxaban 15 mg (42)-20 mg (9) See Rx Instructions PO .COMPLEX 08/14/23 tablets in a starter pack (Xarelto #51 ea DVT-PE Treatment 30-Day Starter) Allergies Allergy/AdvReac Type Severity Reaction Status Date / Time bacitracin Allergy Verified 07/09/22 09:54 [From Neosporin ([id number])] doxycycline Allergy Verified 07/09/22 09:54 neomycin Allergy Verified 07/09/22 09:54 [From Neosporin ([id number])] polymyxin B Allergy Verified 07/09/22 09:54 [From Neosporin ([id number])] <Sheri Forbes DO - Last Filed: 08/14/23 18:30> History of Present Illness HPI narrative: This note was started during downtime. Please see below. Patient History <Mayito Booth DO - Last Filed: 08/15/23 07:50> Medical History (Updated 08/14/23 @ 14:51 by Remington Silver DO) Pulmonary embolism HTN (hypertension) Surgical History (Updated 08/14/23 @ 14:51 by Remington Silver DO) History of knee surgery History of cholecystectomy Social History Smoking Status: Former smoker second hand exposure: No alcohol intake: current (daily wine) substance use type: does not use Smoking Status: Unknown if ever smoked alcohol intake frequency: a few times a week Substance Use Type: does not use Exam <Mayito Booth DO - Last Filed: 08/15/23 07:50> Initial Vital Signs Initial Vital Signs: Vital Signs Pulse Rate 71 08/13/23 18:00 Respiratory Rate 16 08/13/23 18:00 Blood Pressure 143/95 H 08/13/23 18:00 Pulse Oximetry 96 08/13/23 18:00 Oxygen Delivery Method Room Air 08/13/23 18:00 <Sheri Forbes DO - Last Filed: 08/14/23 18:30> Initial Vital Signs Initial Vital Signs: Vital Signs Pulse Rate 71 08/13/23 18:00 Respiratory Rate 16 08/13/23 18:00 Blood Pressure 143/95 H 08/13/23 18:00 Pulse Oximetry 96 08/13/23 18:00 Oxygen Delivery Method Room Air 08/13/23 18:00 <Mayito Somers MD - Last Filed: 08/15/23 01:00> Initial Vital Signs Initial Vital Signs: Vital Signs Pulse Rate 71 08/13/23 18:00 Respiratory Rate 16 08/13/23 18:00 Blood Pressure 143/95 H 08/13/23 18:00 Pulse Oximetry 96 08/13/23 18:00 Oxygen Delivery Method Room Air 08/13/23 18:00 Course <Mayito Booth DO - Last Filed: 08/15/23 07:50> Orders Ordered: Discontinued Medications Heparin Sodium (Porcine) (Heparin 5,000 Unit/Ml Vial) 5,000 unit IV NOW ONE Stop: 08/13/23 15:51 Last Admin: 08/13/23 15:51 Dose: 5,000 unit Documented By: KOURTNEY Heparin Sodium/Dextrose (Heparin Drip) 25,000 unit in 500 mls @ 35.568 mls/hr IV CONT [facility]; Protocol Stop: 08/14/23 15:50 Last Titration: 08/14/23 15:54 Dose: Infused Documented By: Co-signed By: MEG Titration: 08/14/23 11:03 Dose: 13 units/kg/hr, 25.688 mls/hr Documented By: RADHA Co-signed By: VENKATESH Admin: 08/14/23 06:59 Dose: 14 units/kg/hr, 27.664 mls/hr Documented By: Co-signed By: Titration: 08/14/23 06:59 Dose: Infused Documented By: Co-signed By: Titration: 08/14/23 06:52 Dose: 14 units/kg/hr, 27.664 mls/hr Documented By: Co-signed By: Titration: 08/13/23 23:46 Dose: 14 units/kg/hr, 27.664 mls/hr Documented By: Co-signed By: Titration: 08/13/23 22:45 Dose: 0 units/kg/hr, 0 mls/hr Documented By: Co-signed By: Admin: 08/13/23 15:52 Dose: 18 units/kg/hr, 35.568 mls/hr Documented By: KOURTNEY Co-signed By: TONO Losartan Potassium (Losartan 25 Mg Tablet) 25 mg PO DAILY [facility] Last Admin: 08/14/23 09:14 Dose: 25 mg Documented By: Rivaroxaban (Rivaroxaban 10 Mg Tablet) 15 mg PO NOW ONE Stop: 08/14/23 14:11 Last Admin: 08/14/23 14:51 Dose: 15 mg Documented By: CHERYL Rivaroxaban (Rivaroxaban 10 Mg Tablet) 15 mg PO NOW ONE Stop: 08/14/23 18:01 Last Admin: 08/14/23 19:26 Dose: 15 mg Documented By: Vital Signs Vital signs: Vital Signs - 8 hr 08/14/23 18:23 Pulse Rate 88 Respiratory Rate 20 Blood Pressure 125/58 L Pulse Oximetry 95 Oxygen Delivery Method Room Air <Sheri Forbes, - Last Filed: 08/14/23 18:30> Orders Ordered: Discontinued Medications Heparin Sodium (Porcine) (Heparin 5,000 Unit/Ml Vial) 5,000 unit IV NOW ONE Stop: 08/13/23 15:51 Last Admin: 08/13/23 15:51 Dose: 5,000 unit Documented By: KUORTNEY Heparin Sodium/Dextrose (Heparin Drip) 25,000 unit in 500 mls @ 35.568 mls/hr IV CONT [facility]; Protocol Stop: 08/14/23 15:50 Last Titration: 08/14/23 15:54 Dose: Infused Documented By: Co-signed By: MEG Titration: 08/14/23 11:03 Dose: 13 units/kg/hr, 25.688 mls/hr Documented By: RADHA Co-signed By: VENKATESH Admin: 08/14/23 06:59 Dose: 14 units/kg/hr, 27.664 mls/hr Documented By: Co-signed By: Titration: 08/14/23 06:59 Dose: Infused Documented By: Co-signed By: Titration: 08/14/23 06:52 Dose: 14 units/kg/hr, 27.664 mls/hr Documented By: Co-signed By: Titration: 08/13/23 23:46 Dose: 14 units/kg/hr, 27.664 mls/hr Documented By: Co-signed By: Titration: 08/13/23 22:45 Dose: 0 units/kg/hr, 0 mls/hr Documented By: Co-signed By: Admin: 08/13/23 15:52 Dose: 18 units/kg/hr, 35.568 mls/hr Documented By: KOURTNEY Co-signed By: TONO Losartan Potassium (Losartan 25 Mg Tablet) 25 mg PO DAILY [facility] Last Admin: 08/14/23 09:14 Dose: 25 mg Documented By: Rivaroxaban (Rivaroxaban 10 Mg Tablet) 15 mg PO NOW ONE Stop: 08/14/23 14:11 Last Admin: 08/14/23 14:51 Dose: 15 mg Documented By: CHERYL Rivaroxaban (Rivaroxaban 10 Mg Tablet) 15 mg PO NOW ONE Stop: 08/14/23 18:01 Last Admin: 08/14/23 19:26 Dose: 15 mg Documented By: Vital Signs Vital signs: Vital Signs - 8 hr 08/14/23 18:23 Pulse Rate 88 Respiratory Rate 20 Blood Pressure 125/58 L Pulse Oximetry 95 Oxygen Delivery Method Room Air <Mayito Somers MD - Last Filed: 08/15/23 01:00> Orders Ordered: Discontinued Medications Heparin Sodium (Porcine) (Heparin 5,000 Unit/Ml Vial) 5,000 unit IV NOW ONE Stop: 08/13/23 15:51 Last Admin: 08/13/23 15:51 Dose: 5,000 unit Documented By: KOURTNEY Heparin Sodium/Dextrose (Heparin Drip) 25,000 unit in 500 mls @ 35.568 mls/hr IV CONT L[facility]ISE; Protocol Stop: 08/14/23 15:50 Last Titration: 08/14/23 15:54 Dose: Infused Documented By: Co-signed By: MEG Titration: 08/14/23 11:03 Dose: 13 units/kg/hr, 25.688 mls/hr Documented By: Co-signed By: VENKATESH Admin: 08/14/23 06:59 Dose: 14 units/kg/hr, 27.664 mls/hr Documented By: Co-signed By: Titration: 08/14/23 06:59 Dose: Infused Documented By: Co-signed By: Titration: 08/14/23 06:52 Dose: 14 units/kg/hr, 27.664 mls/hr Documented By: Co-signed By: Titration: 08/13/23 23:46 Dose: 14 units/kg/hr, 27.664 mls/hr Documented By: Co-signed By: AB Titration: 08/13/23 22:45 Dose: 0 units/kg/hr, 0 mls/hr Documented By: Co-signed By: AB Admin: 08/13/23 15:52 Dose: 18 units/kg/hr, 35.568 mls/hr Documented By: KOURTNEY Co-signed By: TONO Losartan Potassium (Losartan 25 Mg Tablet) 25 mg PO DAILY [facility] Last Admin: 08/14/23 09:14 Dose: 25 mg Documented By: Rivaroxaban (Rivaroxaban 10 Mg Tablet) 15 mg PO NOW ONE Stop: 08/14/23 14:11 Last Admin: 08/14/23 14:51 Dose: 15 mg Documented By: CHERYL Rivaroxaban (Rivaroxaban 10 Mg Tablet) 15 mg PO NOW ONE Stop: 08/14/23 18:01 Last Admin: 08/14/23 19:26 Dose: 15 mg Documented By: Vital Signs Vital signs: Vital Signs - 8 hr 08/14/23 18:23 Pulse Rate 88 Respiratory Rate 20 Blood Pressure 125/58 L Pulse Oximetry 95 Oxygen Delivery Method Room Air Medical Decision Making <Mayito Booth, - Last Filed: 08/15/23 07:50> Lab Data 08/14/23 07:50 08/14/23 07:50 Labs: Lab Results 08/13/23 08/13/23 08/14/23 Range/Units 12:45 21:45 03:50 WBC 7.4 (4.5-11.0) X10^3/uL RBC 4.44 (4.0-5.2) X10^6/uL Hgb 14.5 (12.0-16.0) g/dL Hct 42.5 (36-46) % MCV 95.7 (80-100) fL MCH 32.5 (26-34) PG MCHC 34.0 (30-36) % RDW 12.7 (11.6-14.8) % Plt Count 235 (150-400) X10^3/uL Neut % (Auto) 69.5 (50-75) % Lymph % (Auto) 21.2 L (25-40) % [facility] % (Auto) 8.4 (3-14) % Eos % (Auto) 0.6 L (2-4) % Baso % (Auto) 0.3 (0-2) % Neut # (Auto) 5100 (5810-6668) /uL Lymph # (Auto) 1600 (4438-7419) /uL [facility] # (Auto) 600 (0-900) /uL Eos # (Auto) 0 (0-450) /uL Baso # (Auto) 0 (0-100) /uL PT 12.1 (9.4-12.5) SECONDS INR 1.1 (0.9-1.3) APTT 30 166 H* D 95 H* D (25.1-36.5) SECONDS Sodium 136 L (137-145) mmol/L Potassium 3.9 (3.4-5.1) mmol/L Chloride 106 (98-107) mmol/L Carbon Dioxide 25 (22-32) mmol/L BUN 15 (7-17) mg/dL Creatinine 0.71 (0.52-1.04) mg/dL Estimated GFR > 60 (>60) mL/min BUN/Creatinine Ratio 21.1 (6-22) Glucose 132 H (80-110) mg/dL Lactate 1.0 (0.7-2.1) mmol/L Calcium 9.0 (8.4-10.2) mg/dL Total Bilirubin 0.8 (0.2-1.3) mg/dL AST 38 H (14-36) IU/L ALT 38 H (<35) IU/L Alkaline Phosphatase 139 H (38-126) U/L Total Creatine Kinase (30-135) U/L Troponin I 0.026 (0.01-0.034) ng/mL NT-Pro-B Natriuret Pep 2840 H (<125) pg/mL Total Protein 6.9 (6.3-8.2) g/dL Albumin 4.1 (3.5-5.0) g/dL Globulin 2.8 (1.7-4.1) g/dL Albumin/Globulin Ratio 1.5 (1.0-2.8) 08/14/23 08/14/23 Range/Units 07:50 10:00 WBC 7.2 (4.5-11.0) X10^3/uL RBC 4.37 (4.0-5.2) X10^6/uL Hgb 14.3 (12.0-16.0) g/dL Hct 41.5 (36-46) % MCV 95.0 (80-100) fL MCH 32.7 (26-34) PG MCHC 34.5 (30-36) % RDW 12.7 (11.6-14.8) % Plt Count 231 (150-400) X10^3/uL Neut % (Auto) 58.5 (50-75) % Lymph % (Auto) 31.1 (25-40) % [facility] % (Auto) 7.1 (3-14) % Eos % (Auto) 2.4 (2-4) % Baso % (Auto) 0.9 (0-2) % Neut # (Auto) 4200 (6162-5638) /uL Lymph # (Auto) 2200 (9056-2831) /uL [facility] # (Auto) 500 (0-900) /uL Eos # (Auto) 200 (0-450) /uL Baso # (Auto) 100 (0-100) /uL PT (9.4-12.5) SECONDS INR (0.9-1.3) APTT 104 H* (25.1-36.5) SECONDS Sodium 135 L (137-145) mmol/L Potassium 4.0 (3.4-5.1) mmol/L Chloride 106 (98-107) mmol/L Carbon Dioxide 25 (22-32) mmol/L BUN 12 (7-17) mg/dL Creatinine 0.59 (0.52-1.04) mg/dL Estimated GFR > 60 (>60) mL/min BUN/Creatinine Ratio 20.3 (6-22) Glucose 128 H (80-110) mg/dL Lactate (0.7-2.1) mmol/L Calcium 8.9 (8.4-10.2) mg/dL Total Bilirubin 1.0 (0.2-1.3) mg/dL AST 39 H (14-36) IU/L ALT 39 H (<35) IU/L Alkaline Phosphatase 126 (38-126) U/L Total Creatine Kinase 117 (30-135) U/L Troponin I 0.023 (0.01-0.034) ng/mL NT-Pro-B Natriuret Pep (<125) pg/mL Total Protein 6.4 (6.3-8.2) g/dL Albumin 3.9 (3.5-5.0) g/dL Globulin 2.5 (1.7-4.1) g/dL Albumin/Globulin Ratio 1.6 (1.0-2.8) MDM Narrative Medical decision making narrative: Patient name: Steffanie Reddy [birth year] ? HPI:? 68-year-old female history of unprovoked pulmonary emboli 9 years ago, no longer on anticoagulation, hypertension, GERD who presents with complaint of shortness of breath for about a week.? Patient's describes it as exertional.? No symptoms at rest or seated or lying.? Patient denies any chest pain or pressure, no discomfort and neck shoulders or belly.? No syncope.? No fevers.? No nasal congestion.? She has had a mild nonproductive cough.? Patient states no nausea no vomiting, no new GI or urinary symptoms.? She describes a little bit of swelling bilateral lower extremities.? Patient states she did have pulmonary emboli 9 years ago they never figured out exactly why she was on Xarelto for a year and a half and ultimately stopped it because she could not have orthopedic injections for her knees.? She did not ever restart it.? She is currently on losartan 25 mg daily, might better 5 mg daily and AcipHex 20 mg daily.? She does not take any form of anticoagulation otherwise.? States she has had prior cholecystectomy, right fallopian tube removed and bilateral knee surgery.? Describes allergies to Augmentin, doxycycline and lisinopril.? No regular tobacco, 2-3 alcoholic drinks daily, no recreational drugs.? Patient is not on any oral estrogen.? Notes she had a ride from [place] to [place] in June but no other long distance travel.? Megan Turner is her primary care on [place] she states that they checked a D-dimer yesterday and then it was elevated and she was referred here. ? Outpatient dimer from leg labs shows 7.19 with a range of 0-0.59 micrograms/mL electrolytes are otherwise appropriate with a creatinine of 0.73 LFTs were normal.? White count was 8.3 with a hemoglobin of 15 and platelets of 260.? Patient did have a c two-view hest x-ray yesterday which was read as negative. ? Vitals:? Temperature is 97.6? F, pulses 106, blood pressure is 189/87, respirations are 20, room air 95%. ? Exam:? GENERAL: Alert and oriented x three, well-appearing female in mild distress. HEENT: Head normocephalic, atraumatic, EOMI, pupils reactive, face symmetric, moist mucous membranes NECK: Supple, full range of motion CARDIOVASCULAR: Regular rate and rhythm without murmurs, rubs or gallops.? JVD.? No edema bilateral lower extremities. RESPIRATORY: Breath sounds equal bilaterally, no wheezes rales or rhonchi.? No tachypnea or accessory muscle use. ABDOMEN: Soft, nontender.? Normoactive bowel sounds all 4 quadrants.? No guarding or rebound, rigidity, no mass EXTREMITIES: Normal range of motion, no clubbing or edema.? Neurovascularly intact NEUROLOGICAL: Cranial nerves II through XII grossly intact.? Moving all extremities SKIN: Warm, dry, no petechiae, no rashes or lesions. ? Labs: ?White count of 7.4 hemoglobin of 14.5, platelets of 235.? Lactate is 1.? Patient's chemistries show a creatinine of 0.71 BUN of 15 potassium is 3.9 with sodium of 136, glucose is 132.? BNP is 28 40 can not compare today secondary to EMR down time.? Troponin is 0.026.?? ? Imaging:? CT angio chest shows extensive pulmonary embolism involving all 5 lobes of the lung right worse than left mild right heart strain.? These involve the distal right main pulmonary artery involvement of proximal branches right upper lobe right middle lobe right lower lobe segmental and subsegmental involvement of the left lower lobe segmental and subsegmental involvement left upper lobe. ? EKG:? Sinus rhythm at 85 rate, IN 168 QRS 84 QTC 449.? No acute ST changes.? ? MDM:? 68-year-old female with complaint of shortness of breath with mild nonproductive cough for the past week she describes it is exertional.? Patient had labs yesterday which showed an elevated dimer but otherwise appropriate CBC with no anemia, no significant renal changes, patient did not have a troponin or BNP at that time.? She did have a two-view chest x-ray yesterday which was read as negative.? Physical reports for those.? Plan to repeat labs including troponin and BNP, CT angio of the chest to evaluate for pulmonary emboli.? Patient is slightly tachycardic initially on arrival, she is hypertensive. Dr. Zamorano call patient's CT PE shows subsegmental pulmonary emboli all 5 lobes.? Little bit of mild right heart strain. Pulmonary emboli distal right main pulmonary artery and involvement proximal branches right upper lobe middle lobe right lower lobe as well as segmental and subsegmental in the left lower lobe and segmental and subsegmental vomit left upper lobe.? Mild right heart strain seen on CT.? Troponin is 0.026 BNP is 2840.? Patient does not have any tachycardia or hypoxia. ? Spoke with pulmonology, Dr. Alfaro [facility]. They note that if patient had severe heart strain on echo would potentially perform Ekos for pulmonary emboli. If they did not have severe heart strain wood discharge home with oral anticoagulation. Would recommend heparin at this time in case patient did become a candidate for intervention. Spoke with Dr. Silver, hospitalist who notes that if echo does show severe strain would be very difficult to transfer. He did call over to [facility] to see if they had any bed availability to hold for the patient. They did not. As patient would get discharged home if echo is appropriate plan is to board overnight. Spoke with patient who is agreeable to labs overnight in the emergency department. She is on heparin drip. Echo is ordered for the a.m. Patient signed out to Dr. Somers while awaiting results. Impression:? Dyspnea, Pulmonary embolism. ? Dr. Jyothi Booth, <Sheri Forbes DO - Last Filed: 08/14/23 18:30> Lab Data Labs: Lab Results 08/13/23 08/13/23 08/14/23 Range/Units 12:45 21:45 03:50 WBC 7.4 (4.5-11.0) X10^3/uL RBC 4.44 (4.0-5.2) X10^6/uL Hgb 14.5 (12.0-16.0) g/dL Hct 42.5 (36-46) % MCV 95.7 (80-100) fL MCH 32.5 (26-34) PG MCHC 34.0 (30-36) % RDW 12.7 (11.6-14.8) % Plt Count 235 (150-400) X10^3/uL Neut % (Auto) 69.5 (50-75) % Lymph % (Auto) 21.2 L (25-40) % [facility] % (Auto) 8.4 (3-14) % Eos % (Auto) 0.6 L (2-4) % Baso % (Auto) 0.3 (0-2) % Neut # (Auto) 5100 (7724-3074) /uL Lymph # (Auto) 1600 (5734-6784) /uL [facility] # (Auto) 600 (0-900) /uL Eos # (Auto) 0 (0-450) /uL Baso # (Auto) 0 (0-100) /uL PT 12.1 (9.4-12.5) SECONDS INR 1.1 (0.9-1.3) APTT 30 166 H* D 95 H* D (25.1-36.5) SECONDS Sodium 136 L (137-145) mmol/L Potassium 3.9 (3.4-5.1) mmol/L Chloride 106 (98-107) mmol/L Carbon Dioxide 25 (22-32) mmol/L BUN 15 (7-17) mg/dL Creatinine 0.71 (0.52-1.04) mg/dL Estimated GFR > 60 (>60) mL/min BUN/Creatinine Ratio 21.1 (6-22) Glucose 132 H (80-110) mg/dL Lactate 1.0 (0.7-2.1) mmol/L Calcium 9.0 (8.4-10.2) mg/dL Total Bilirubin 0.8 (0.2-1.3) mg/dL AST 38 H (14-36) IU/L ALT 38 H (<35) IU/L Alkaline Phosphatase 139 H (38-126) U/L Total Creatine Kinase (30-135) U/L Troponin I 0.026 (0.01-0.034) ng/mL NT-Pro-B Natriuret Pep 2840 H (<125) pg/mL Total Protein 6.9 (6.3-8.2) g/dL Albumin 4.1 (3.5-5.0) g/dL Globulin 2.8 (1.7-4.1) g/dL Albumin/Globulin Ratio 1.5 (1.0-2.8) 08/14/23 08/14/23 Range/Units 07:50 10:00 WBC 7.2 (4.5-11.0) X10^3/uL RBC 4.37 (4.0-5.2) X10^6/uL Hgb 14.3 (12.0-16.0) g/dL Hct 41.5 (36-46) % MCV 95.0 (80-100) fL MCH 32.7 (26-34) PG MCHC 34.5 (30-36) % RDW 12.7 (11.6-14.8) % Plt Count 231 (150-400) X10^3/uL Neut % (Auto) 58.5 (50-75) % Lymph % (Auto) 31.1 (25-40) % [facility] % (Auto) 7.1 (3-14) % Eos % (Auto) 2.4 (2-4) % Baso % (Auto) 0.9 (0-2) % Neut # (Auto) 4200 (2960-9351) /uL Lymph # (Auto) 2200 (0015-5104) /uL [facility] # (Auto) 500 (0-900) /uL Eos # (Auto) 200 (0-450) /uL Baso # (Auto) 100 (0-100) /uL PT (9.4-12.5) SECONDS INR (0.9-1.3) APTT 104 H* (25.1-36.5) SECONDS Sodium 135 L (137-145) mmol/L Potassium 4.0 (3.4-5.1) mmol/L Chloride 106 (98-107) mmol/L Carbon Dioxide 25 (22-32) mmol/L BUN 12 (7-17) mg/dL Creatinine 0.59 (0.52-1.04) mg/dL Estimated GFR > 60 (>60) mL/min BUN/Creatinine Ratio 20.3 (6-22) Glucose 128 H (80-110) mg/dL Lactate (0.7-2.1) mmol/L Calcium 8.9 (8.4-10.2) mg/dL Total Bilirubin 1.0 (0.2-1.3) mg/dL AST 39 H (14-36) IU/L ALT 39 H (<35) IU/L Alkaline Phosphatase 126 (38-126) U/L Total Creatine Kinase 117 (30-135) U/L Troponin I 0.023 (0.01-0.034) ng/mL NT-Pro-B Natriuret Pep (<125) pg/mL Total Protein 6.4 (6.3-8.2) g/dL Albumin 3.9 (3.5-5.0) g/dL Globulin 2.5 (1.7-4.1) g/dL Albumin/Globulin Ratio 1.6 (1.0-2.8) Imaging Data CT scan - chest: Radiologist's Impression: PROCEDURE: CT ANGIO CHEST PE PROTOCOL INDICATIONS: shortness of breath, F/U on labs TECHNIQUE: After the administration of intravenous contrast, 2 mm thick sections acquired from the pulmonary apices to the posterior costophrenic angles. 3-dimensional maximum intensity projection (MIP) coronal and sagittal reformats were then acquired through the thorax. For radiation dose reduction, the following was used: automated exposure control, adjustment of mA and/or kV according to patient size. COMPARISON: [facility] [place], [place], CT ANGIO CHEST PE PROTOCOL, 06/26/2020, 14:57. FINDINGS: Image quality: There is streak artifact seen through the level of the shoulders. Pulmonary arteries: On the right, there is extensive pulmonary embolism seen, including involving the distal right main pulmonary artery. There is involvement of the proximal branches of the right upper lobe, the right middle lobe, and the right lower lobe pulmonary arteries. On the left, there is segmental and subsegmental involvement of the left lower lobe, with segmental and subsegmental involvement of the left upper lobe. The pulmonary arteries overall demonstrate normal size. Lower Neck: No enlarged lymph nodes. Thyroid: No thyroid nodules which require sonographic follow up, per consensus guidelines. Axillae: No enlarged lymph nodes. Chest Wall: Unremarkable. Bones: Age-appropriate bony degenerative changes are seen. Accentuated thoracic kyphosis is seen. Lungs and Pleura: No pneumothorax or pleural effusions. No consolidation or suspicious nodules. Heart: The right heart is slightly enlarged compared to the left. No pericardial effusion. Thoracic Vessels: No aortic aneurysm. Mediastinum and Nicole: No enlarged lymph nodes. Esophagus: No wall thickening. No significant hiatal hernia. Upper Abdomen: Visualized upper abdomen solid organs and bowel loops appear normal. On the property maintenance supervisor image, cholecystectomy clips are seen. IMPRESSION: Extensive pulmonary embolism is seen, which involves all 5 lobes of the lung, right worse than left. Mild right heart strain can be seen. No acute cardiopulmonary process. Additional findings: Cholecystectomy Note: Critical findings discussed by telephone with Dr. Booth at 1:34 p.m. [place] time on August 13, 2023. Dictated by: German Zamorano M.D. on 08/13/2023 at 12:31 echo: Radiologist's Impression: [facility] +---------+ [facility] : : [address] [place] [address] : : [place], [place] : : [id number] : : Phone: [phone] Echocardiogram Report + + :Name: STEFFANIE PALACIOS Study Date: 08/14/2023 Height: 65 in : :[facility] ReadingLocation: Weight: 218 lb : : Gender: Female BSA: 2.1 m2 : :: 1955 Age: 68 yrs BP: 155/67 mmHg: :Reason For Study: Pulmonary- Embolism : : Performed By: Lena Martino : :Referring: MAYITO BOOTH : + + Interpretation Summary The ejection fraction is estimated to be 55-60%. Grade I diastolic dysfunction. The right ventricle is mildly dilated. Right ventricular systolic function is moderately reduced. There is mild biatrial enlargement. There is mild tricuspid regurgitation. The right ventricular systolic pressure is estimated to be at least 46 mmHg based on an estimated right atrial pressure of 3 mm Hg. Procedure: A two-dimensional transthoracic echocardiogram with color flow and Doppler was performed. The study quality was technically adequate. There is no prior echocardiogram noted for this patient. The heart rate ranged between 83-88 bpm during the study. Left Ventricle: The left ventricle is normal in size and wall thickness. The ejection fraction is estimated to be 55-60%. Diastolic parameters suggest a relaxation abnormality of the left ventricle, consistent with probable normal filling pressures. Right Ventricle: The right ventricle is mildly dilated. Right ventricular systolic function is moderately reduced. Atria: There is mild biatrial enlargement. There is no Doppler evidence for an interatrial shunt. Mitral Valve: The mitral valve is normal in structure and function. There is trace mitral regurgitation. Aortic Valve: The aortic valve is trileaflet. The aortic valve opens well. There is no aortic valve stenosis. No aortic regurgitation is present. Tricuspid Valve: The tricuspid valve is normal. There is mild tricuspid regurgitation. The right ventricular systolic pressure is estimated to be at least 46 mmHg based on an estimated right atrial pressure of 3 mm Hg. Pulmonic Valve: The pulmonic valve leaflets are thin and pliable; valve motion is normal. There is mild pulmonic regurgitation. Great Vessels: The aortic root is normal size. The dimensions of the ascending aorta are normal. The IVC is of normal diameter and collapses greater than 50% with a sniff. This suggests a low right atrial pressure of 3 mm Hg. Pericardium/ Pleura There is no pericardial effusion. There is no pleural effusion. MMode/2D Measurements & Calculations LVIDd: 4.8 cm LVOT diam: 2.0 cm LVIDs: 3.0 cm Ao root diam: 3.5 cm FS: 36.8 % asc Aorta Diam: 3.6 cm IVSd: 0.95 cm Ao Arch Diam (Prox Trans): 3.4 cm LVPWd: 0.95 cm LV robles. diameter/BSA (cm/m^2): 2.3 LV sys. diameter/BSA (cm/m^2): 1.5 LA A2 area: 23.3 cm2 RA long axis: 5.5 cm LA A4 area: 21.7 cm2 RA area: 19.5 cm2 LA length (vol): 5.6 cm RA vol: 59.0 ml LA vol: 77.0 ml RA : 28.8 ml/m2 LA vol index: 37.5 ml/m2 IVC diam: 1.5 cm RVD1 (basal): 4.0 cm RVD2 (mid): 3.8 cm TAPSE: 1.3 cm Doppler Measurements & Calculations Ao V2 max: 152.4 cm/sec LVOT Max Ricardo: 97.3 cm/sec Ao V2 mean: 117.7 cm/sec LV V1 max P.8 mmHg Ao max P.3 mmHg LV V1 VTI: 20.1 cm Ao mean P.9 mmHg ACRYN(I,D): 2.0 cm2 Ao V2 VTI: 32.7 cm CARYN(V,D): 2.0 cm2 sev ratio: 0.61 CARYN indexed to BSA (cm^2/m^2): 0.95 MV E max ricardo: 23.7 cm/sec TR max ricardo: 286.5 cm/sec MV A max ricardo: 96.5 cm/sec TR max P.8 mmHg MV E/A: 0.25 PA V2 max: 86.2 cm/sec Med Peak E' Ricardo: 4.2 cm/sec PA V2 mean: 56.1 cm/sec E/E' med: 5.7 PA mean P.4 mmHg Lat Peak E' Ricardo: 4.9 cm/sec PA pr(Accel): 13.9 mmHg E/E' lat: 4.9 E/e' average: 5.3 SV(LVOT): 64.0 ml Reading Physician:11:49 AM [facility] Narrative Medical decision making narrative: Patient name: Steffanie Reddy [birth year] ? HPI:? 68-year-old female history of unprovoked pulmonary emboli 9 years ago, no longer on anticoagulation, hypertension, GERD who presents with complaint of shortness of breath for about a week.? Patient's describes it as exertional.? No symptoms at rest or seated or lying.? Patient denies any chest pain or pressure, no discomfort and neck shoulders or belly.? No syncope.? No fevers.? No nasal congestion.? She has had a mild nonproductive cough.? Patient states no nausea no vomiting, no new GI or urinary symptoms.? She describes a little bit of swelling bilateral lower extremities.? Patient states she did have pulmonary emboli 9 years ago they never figured out exactly why she was on Xarelto for a year and a half and ultimately stopped it because she could not have orthopedic injections for her knees.? She did not ever restart it.? She is currently on losartan 25 mg daily, might better 5 mg daily and AcipHex 20 mg daily.? She does not take any form of anticoagulation otherwise.? States she has had prior cholecystectomy, right fallopian tube removed and bilateral knee surgery.? Describes allergies to Augmentin, doxycycline and lisinopril.? No regular tobacco, 2-3 alcoholic drinks daily, no recreational drugs.? Patient is not on any oral estrogen.? Notes she had a ride from [place] to [place] in June but no other long distance travel.? Megan Turner is her primary care on [place] she states that they checked a D-dimer yesterday and then it was elevated and she was referred here. ? Outpatient dimer from leg labs shows 7.19 with a range of 0-0.59 micrograms/mL electrolytes are otherwise appropriate with a creatinine of 0.73 LFTs were normal.? White count was 8.3 with a hemoglobin of 15 and platelets of 260.? Patient did have a c two-view hest x-ray yesterday which was read as negative. ? Vitals:? Temperature is 97.6? F, pulses 106, blood pressure is 189/87, respirations are 20, room air 95%. ? Exam:? GENERAL: Alert and oriented x three, well-appearing female in mild distress. HEENT: Head normocephalic, atraumatic, EOMI, pupils reactive, face symmetric, moist mucous membranes NECK: Supple, full range of motion CARDIOVASCULAR: Regular rate and rhythm without murmurs, rubs or gallops.? JVD.? No edema bilateral lower extremities. RESPIRATORY: Breath sounds equal bilaterally, no wheezes rales or rhonchi.? No tachypnea or accessory muscle use. ABDOMEN: Soft, nontender.? Normoactive bowel sounds all 4 quadrants.? No guarding or rebound, rigidity, no mass EXTREMITIES: Normal range of motion, no clubbing or edema.? Neurovascularly intact NEUROLOGICAL: Cranial nerves II through XII grossly intact.? Moving all extremities SKIN: Warm, dry, no petechiae, no rashes or lesions. ? Labs: ?White count of 7.4 hemoglobin of 14.5, platelets of 235.? Lactate is 1.? Patient's chemistries show a creatinine of 0.71 BUN of 15 potassium is 3.9 with sodium of 136, glucose is 132.? BNP is 28 40 can not compare today secondary to EMR down time.? Troponin is 0.026.?? ? Imaging:? CT angio chest shows extensive pulmonary embolism involving all 5 lobes of the lung right worse than left mild right heart strain.? These involve the distal right main pulmonary artery involvement of proximal branches right upper lobe right middle lobe right lower lobe segmental and subsegmental involvement of the left lower lobe segmental and subsegmental involvement left upper lobe. ? EKG:? Sinus rhythm at 85 rate, IN 168 QRS 84 QTC 449.? No acute ST changes.? ? MDM:? 68-year-old female with complaint of shortness of breath with mild nonproductive cough for the past week she describes it is exertional.? Patient had labs yesterday which showed an elevated dimer but otherwise appropriate CBC with no anemia, no significant renal changes, patient did not have a troponin or BNP at that time.? She did have a two-view chest x-ray yesterday which was read as negative.? Physical reports for those.? Plan to repeat labs including troponin and BNP, CT angio of the chest to evaluate for pulmonary emboli.? Patient is slightly tachycardic initially on arrival, she is hypertensive. Dr. Zamorano call patient's CT PE shows subsegmental pulmonary emboli all 5 lobes.? Little bit of mild right heart strain. Pulmonary emboli distal right main pulmonary artery and involvement proximal branches right upper lobe middle lobe right lower lobe as well as segmental and subsegmental in the left lower lobe and segmental and subsegmental vomit left upper lobe.? Mild right heart strain seen on CT.? Troponin is 0.026 BNP is 2840.? Patient does not have any tachycardia or hypoxia. ? Spoke with pulmonology, Dr. Alfaro [facility]. They note that if patient had severe heart strain on echo would potentially perform Ekos for pulmonary emboli. If they did not have severe heart strain wood discharge home with oral anticoagulation. Would recommend heparin at this time in case patient did become a candidate for intervention. Spoke with Dr. Silver, hospitalist who notes that if echo does show severe strain would be very difficult to transfer. He did call over to [facility] to see if they had any bed availability to hold for the patient. They did not. As patient would get discharged home if echo is appropriate plan is to board overnight. Spoke with patient who is agreeable to labs overnight in the emergency department. She is on heparin drip. Echo is ordered for the a.m. Patient signed out to Dr. Somers while awaiting results. Impression:? Dyspnea, Pulmonary embolism. ? Dr. Jyothi Booth, DO Dr. Somers -care of patient is signed out to me by Dr. Booth. No acute events noted overnight. Patient was placed on supplemental nasal cannula as she briefly dropped to 88% while sleeping. Patient was taken for ambulatory pulse ox, on room air she dropped to 86% simply ambulating to the hallway. Pending echocardiogram in the morning. She has been on heparin all night long. Care of patient to be signed out to Dr. Forbes at 0700 Dr. Forbes-patient signed out to me by Dr. Somers seen evaluated patient myself. She is requiring oxygen quite dyspneic with any kind of exertion up to bedside commode she requires O2. She has significant extensive pulmonary embolism in 5 lobes. Awaiting for echocardiogram which was not available yesterday but is available this morning to assess right heart strain. Repeat blood work done this morning does not show significant change and no elevation in troponin. 1230DrSavanah Patel, cardiology updated on patient's symptoms test results has read echocardiogram spoken with Dr. Foote about Ekos procedure. He states the go shows very mild right heart strain might be chronic. Thinks that risks outweigh benefits. Not a candidate. Patient has remained stable in the ED for over 24 hours. With ambulation she does require oxygen and O2 drops to 87% however at rest she has not require any oxygen. Dr. Silver in ED to see and evaluate patient. Has consulted with pulmonology at this time no longer meets any sort of admission criteria can be discharged home on oxygen and anticoagulation. He has started her on Xarelto. She has given a 2nd dose to take when she goes home and prescription has been sent. <Mayito Somers MD - Last Filed: 08/15/23 01:00> Lab Data Labs: Lab Results 06/08/24 06/08/24 06/09/24 Range/Units 12:45 21:45 03:50 WBC 7.4 (4.5-11.0) X10^3/uL RBC 4.44 (4.0-5.2) X10^6/uL Hgb 14.5 (12.0-16.0) g/dL Hct 42.5 (36-46) % MCV 95.7 (80-100) fL MCH 32.5 (26-34) PG MCHC 34.0 (30-36) % RDW 12.7 (11.6-14.8) % Plt Count 235 (150-400) X10^3/uL Neut % (Auto) 69.5 (50-75) % Lymph % (Auto) 21.2 L (25-40) % [facility] % (Auto) 8.4 (3-14) % Eos % (Auto) 0.6 L (2-4) % Baso % (Auto) 0.3 (0-2) % Neut # (Auto) 5100 (6661-4694) /uL Lymph # (Auto) 1600 (7228-3434) /uL [facility] # (Auto) 600 (0-900) /uL Eos # (Auto) 0 (0-450) /uL Baso # (Auto) 0 (0-100) /uL PT 12.1 (9.4-12.5) SECONDS INR 1.1 (0.9-1.3) APTT 30 166 H* D 95 H* D (25.1-36.5) SECONDS Sodium 136 L (137-145) mmol/L Potassium 3.9 (3.4-5.1) mmol/L Chloride 106 (98-107) mmol/L Carbon Dioxide 25 (22-32) mmol/L BUN 15 (7-17) mg/dL Creatinine 0.71 (0.52-1.04) mg/dL Estimated GFR > 60 (>60) mL/min BUN/Creatinine Ratio 21.1 (6-22) Glucose 132 H (80-110) mg/dL Lactate 1.0 (0.7-2.1) mmol/L Calcium 9.0 (8.4-10.2) mg/dL Total Bilirubin 0.8 (0.2-1.3) mg/dL AST 38 H (14-36) IU/L ALT 38 H (<35) IU/L Alkaline Phosphatase 139 H (38-126) U/L Total Creatine Kinase (30-135) U/L Troponin I 0.026 (0.01-0.034) ng/mL NT-Pro-B Natriuret Pep 2840 H (<125) pg/mL Total Protein 6.9 (6.3-8.2) g/dL Albumin 4.1 (3.5-5.0) g/dL Globulin 2.8 (1.7-4.1) g/dL Albumin/Globulin Ratio 1.5 (1.0-2.8) 08/14/23 08/14/23 Range/Units 07:50 10:00 WBC 7.2 (4.5-11.0) X10^3/uL RBC 4.37 (4.0-5.2) X10^6/uL Hgb 14.3 (12.0-16.0) g/dL Hct 41.5 (36-46) % MCV 95.0 (80-100) fL MCH 32.7 (26-34) PG MCHC 34.5 (30-36) % RDW 12.7 (11.6-14.8) % Plt Count 231 (150-400) X10^3/uL Neut % (Auto) 58.5 (50-75) % Lymph % (Auto) 31.1 (25-40) % [facility] % (Auto) 7.1 (3-14) % Eos % (Auto) 2.4 (2-4) % Baso % (Auto) 0.9 (0-2) % Neut # (Auto) 4200 (8832-7319) /uL Lymph # (Auto) 2200 (1695-4973) /uL [facility] # (Auto) 500 (0-900) /uL Eos # (Auto) 200 (0-450) /uL Baso # (Auto) 100 (0-100) /uL PT (9.4-12.5) SECONDS INR (0.9-1.3) APTT 104 H* (25.1-36.5) SECONDS Sodium 135 L (137-145) mmol/L Potassium 4.0 (3.4-5.1) mmol/L Chloride 106 (98-107) mmol/L Carbon Dioxide 25 (22-32) mmol/L BUN 12 (7-17) mg/dL Creatinine 0.59 (0.52-1.04) mg/dL Estimated GFR > 60 (>60) mL/min BUN/Creatinine Ratio 20.3 (6-22) Glucose 128 H (80-110) mg/dL Lactate (0.7-2.1) mmol/L Calcium 8.9 (8.4-10.2) mg/dL Total Bilirubin 1.0 (0.2-1.3) mg/dL AST 39 H (14-36) IU/L ALT 39 H (<35) IU/L Alkaline Phosphatase 126 (38-126) U/L Total Creatine Kinase 117 (30-135) U/L Troponin I 0.023 (0.01-0.034) ng/mL NT-Pro-B Natriuret Pep (<125) pg/mL Total Protein 6.4 (6.3-8.2) g/dL Albumin 3.9 (3.5-5.0) g/dL Globulin 2.5 (1.7-4.1) g/dL Albumin/Globulin Ratio 1.6 (1.0-2.8) MDM Narrative Medical decision making narrative: Patient name: Steffanie Reddy [birth year] ? HPI:? 68-year-old female history of unprovoked pulmonary emboli 9 years ago, no longer on anticoagulation, hypertension, GERD who presents with complaint of shortness of breath for about a week.? Patient's describes it as exertional.? No symptoms at rest or seated or lying.? Patient denies any chest pain or pressure, no discomfort and neck shoulders or belly.? No syncope.? No fevers.? No nasal congestion.? She has had a mild nonproductive cough.? Patient states no nausea no vomiting, no new GI or urinary symptoms.? She describes a little bit of swelling bilateral lower extremities.? Patient states she did have pulmonary emboli 9 years ago they never figured out exactly why she was on Xarelto for a year and a half and ultimately stopped it because she could not have orthopedic injections for her knees.? She did not ever restart it.? She is currently on losartan 25 mg daily, might better 5 mg daily and AcipHex 20 mg daily.? She does not take any form of anticoagulation otherwise.? States she has had prior cholecystectomy, right fallopian tube removed and bilateral knee surgery.? Describes allergies to Augmentin, doxycycline and lisinopril.? No regular tobacco, 2-3 alcoholic drinks daily, no recreational drugs.? Patient is not on any oral estrogen.? Notes she had a ride from [place] to [place] in June but no other long distance travel.? Megan Turner is her primary care on [place] she states that they checked a D-dimer yesterday and then it was elevated and she was referred here. ? Outpatient dimer from leg labs shows 7.19 with a range of 0-0.59 micrograms/mL electrolytes are otherwise appropriate with a creatinine of 0.73 LFTs were normal.? White count was 8.3 with a hemoglobin of 15 and platelets of 260.? Patient did have a c two-view hest x-ray yesterday which was read as negative. ? Vitals:? Temperature is 97.6? F, pulses 106, blood pressure is 189/87, respirations are 20, room air 95%. ? Exam:? GENERAL: Alert and oriented x three, well-appearing female in mild distress. HEENT: Head normocephalic, atraumatic, EOMI, pupils reactive, face symmetric, moist mucous membranes NECK: Supple, full range of motion CARDIOVASCULAR: Regular rate and rhythm without murmurs, rubs or gallops.? JVD.? No edema bilateral lower extremities. RESPIRATORY: Breath sounds equal bilaterally, no wheezes rales or rhonchi.? No tachypnea or accessory muscle use. ABDOMEN: Soft, nontender.? Normoactive bowel sounds all 4 quadrants.? No guarding or rebound, rigidity, no mass EXTREMITIES: Normal range of motion, no clubbing or edema.? Neurovascularly intact NEUROLOGICAL: Cranial nerves II through XII grossly intact.? Moving all extremities SKIN: Warm, dry, no petechiae, no rashes or lesions. ? Labs: ?White count of 7.4 hemoglobin of 14.5, platelets of 235.? Lactate is 1.? Patient's chemistries show a creatinine of 0.71 BUN of 15 potassium is 3.9 with sodium of 136, glucose is 132.? BNP is 28 40 can not compare today secondary to EMR down time.? Troponin is 0.026.?? ? Imaging:? CT angio chest shows extensive pulmonary embolism involving all 5 lobes of the lung right worse than left mild right heart strain.? These involve the distal right main pulmonary artery involvement of proximal branches right upper lobe right middle lobe right lower lobe segmental and subsegmental involvement of the left lower lobe segmental and subsegmental involvement left upper lobe. ? EKG:? Sinus rhythm at 85 rate, IN 168 QRS 84 QTC 449.? No acute ST changes.? ? MDM:? 68-year-old female with complaint of shortness of breath with mild nonproductive cough for the past week she describes it is exertional.? Patient had labs yesterday which showed an elevated dimer but otherwise appropriate CBC with no anemia, no significant renal changes, patient did not have a troponin or BNP at that time.? She did have a two-view chest x-ray yesterday which was read as negative.? Physical reports for those.? Plan to repeat labs including troponin and BNP, CT angio of the chest to evaluate for pulmonary emboli.? Patient is slightly tachycardic initially on arrival, she is hypertensive. Dr. Zamorano call patient's CT PE shows subsegmental pulmonary emboli all 5 lobes.? Little bit of mild right heart strain. Pulmonary emboli distal right main pulmonary artery and involvement proximal branches right upper lobe middle lobe right lower lobe as well as segmental and subsegmental in the left lower lobe and segmental and subsegmental vomit left upper lobe.? Mild right heart strain seen on CT.? Troponin is 0.026 BNP is 2840.? Patient does not have any tachycardia or hypoxia. ? Spoke with pulmonology, Dr. Alfaro [facility]. They note that if patient had severe heart strain on echo would potentially perform Ekos for pulmonary emboli. If they did not have severe heart strain wood discharge home with oral anticoagulation. Would recommend heparin at this time in case patient did become a candidate for intervention. Spoke with Dr. Silver, hospitalist who notes that if echo does show severe strain would be very difficult to transfer. He did call over to [facility] to see if they had any bed availability to hold for the patient. They did not. As patient would get discharged home if echo is appropriate plan is to board overnight. Spoke with patient who is agreeable to labs overnight in the emergency department. She is on heparin drip. Echo is ordered for the a.m. Patient signed out to Dr. Yonis while awaiting results. Impression:? Dyspnea, Pulmonary embolism. ? Dr. Jyothi Booth, DO Dr. Somers -care of patient is signed out to me by Dr. Booth. No acute events noted overnight. Patient was placed on supplemental nasal cannula as she briefly dropped to 88% while sleeping. Patient was taken for ambulatory pulse ox, on room air she dropped to 86% simply ambulating to the hallway. Pending echocardiogram in the morning. She has been on heparin all night long. Care of patient to be signed out to Dr. Forbes at 0700 Critical Care Time <Sheri Forbes DO - Last Filed: 08/14/23 18:30> Critical Care Time Critical Care Time: Yes Total Critical Care Time: 60 Attestation: The high probability of a clinically significant, sudden or life threatening deterioration of the [cardiovascular] system(s) required my full and direct attention, intervention and personal management. The aggregate critical care time was 60 minutes. This time is in addition to time spent performing reported procedures but includes the following: [x] Data Review and interpretation [x] Patient assessment and monitoring of vital signs [x] Documentation [x] Medication orders and management Discharge Plan Departure Patient Disposition: Home Clinical Impression: Bilateral pulmonary embolism Instructions: Pulmonary Embolism Activity Restrictions/Additional Instructions: *You have been diagnosed with pulmonary embolism *What to do: At this time wear oxygen while you are up and moving about. Do not over exert herself. Move slowly this is going to take a few months before you start to feel better *Continue to take medications as directed Xarelto 15 mg twice a day for 21 days then 20 mg once daily *Follow up with your primary care provider in 2-3 days or call [phone] *Return to ER if you should have increasing chest pain shortness of breath increase need an oxygen. [or] any new, worsening or concerning symptoms Prescriptions: New Xarelto DVT-PE Treat 30d Start 15 mg (42)- 20 mg (9) tablets,dose pack See Rx Instructions .ROUTE .COMPLEX Qty: 51 0RF Rx Instructions: take one-15 mg tablet twice daily for 21 days, then one-20 mg tablet once daily; must take with meal/food No Action losartan 25 mg tablet 25 mg PO DAILY Stand Alone Forms: Patient Portal/API
[2023-08-13 19:00] VITALS: BP 190/89; PULSE 83; RESP 16; O2SAT 96
[2023-08-13 19:22] LABS: Add Manual Diff / Slide Review NO; Basophils Absolute Auto 0 /uL (0-100); Basophils Percent Auto 0.3 % (0-2); Eosinophils Absolute Auto 0 /uL (0-450); Eosinophils Percent Auto 0.6 % (2-4); Hematocrit 42.5 % (36-46); Hemoglobin 14.5 g/dL (12.0-16.0); Lymphocytes Absolute Auto 1600 /uL (1100-4500); Lymphocytes Percent Auto 21.2 % (25-40); Mean Corpuscular Hemoglobin 32.5 PG (26-34); Mean Corpuscular Volume 95.7 fL (80-100); Monocytes Absolute Auto 600 /uL (0-900); Monocytes Percent Auto 8.4 % (3-14); Neutrophils Absolute Auto 5100 /uL (1500-7000); Neutrophils Percent Auto 69.5 % (50-75); Platelet Count 235 X10^3/uL (150-400); Red Blood Cell Count 4.44 X10^6/uL (4.0-5.2); Red Cell Distribution Width 12.7 % (11.6-14.8); White Blood Cell Count 7.4 X10^3/uL (4.5-11.0)
[2023-08-13 19:23] LABS: Alanine Aminotransferase 38 IU/L (<35); Albumin 4.1 g/dL (3.5-5.0); Albumin Globulin Ratio 1.5 (1.0-2.8); Alkaline Phosphatase 139 U/L (38-126); Aspartate Aminotransferase 38 IU/L (14-36); BUN Creatinine Ratio 21.1 (6-22); Bilirubin Total 0.8 mg/dL (0.2-1.3); Blood Urea Nitrogen 15 mg/dL (7-17); Carbon Dioxide 25 mmol/L (22-32); Chloride 106 mmol/L (98-107); Estimated Glomerular Filt Rate > 60 mL/min (>60); Globulin 2.8 g/dL (1.7-4.1); Glucose 132 mg/dL (80-110); HEMOLYSIS 20 (0-50); NT-proBNP (BNP-Adult 18+) 2840 pg/mL (<125); Potassium 3.9 mmol/L (3.4-5.1); Sodium 136 mmol/L (137-145); Total Protein 6.9 g/dL (6.3-8.2); Troponin I 0.026 ng/mL (0.01-0.034)
[2023-08-13 19:24] LABS: INR 1.1 (0.9-1.3); PTT Partial Thromboplastin Tim 30 SECONDS (25.1-36.5); Prothrombin Time 12.1 SECONDS (9.4-12.5)
[2023-08-13 19:30] VITALS: BP 170/73; PULSE 86; RESP 14; O2SAT 92
--- NOTE | 2023-08-13 19:39 | PC.NURSE ---
Pt is sitting up in [facility]. A/O X 4. Denies feeling SOB unless she is moving around. Appears in NAD. Heparin gtt at 18 units/kg/hr
[2023-08-13 20:00] VITALS: BP 134/62; PULSE 81; RESP 12; O2SAT 92
[2023-08-13 20:30] VITALS: BP 133/60; PULSE 81; RESP 16; O2SAT 92
[2023-08-13 22:32] LABS: PTT Partial Thromboplastin Tim 166 SECONDS (25.1-36.5)
--- NOTE | 2023-08-13 22:35 | PC.NURSE ---
Heparin drip stopped. Discussed plan with pt, understands.
[2023-08-13 23:48] VITALS: BMI 36.2
[2023-08-14] VITALS (14 sets, daily range): BP systolic 125–189; BP diastolic 58–98; PULSE 77–96; RESP 20–26; TEMP 36.7–36.9; O2SAT 87–99
[2023-08-14 04:12] LABS: PTT Partial Thromboplastin Tim 95 SECONDS (25.1-36.5)
--- NOTE | 2023-08-14 04:43 | PC.NURSE ---
No change to heparin drip. PTT 95 within range.
--- NOTE | 2023-08-14 06:56 | PC.NURSE ---
ambulation trial off O2 was unsuccessful, pt O2 levels dropped to 86%, we returned to the room and she was placed on 2L NC.
[2023-08-14] MEDS: HEPARIN DRIP 25,000 UNIT/500 ML IV.SOLN 27.664 UNIT IV (06:59)
--- NOTE | 2023-08-14 07:01 | PC.NURSE ---
Pt up ambulating in [place]. Sats dropped to 86%. Pt increased work of breathing. Dr Somers notified.
[2023-08-14 08:03] LABS: Add Manual Diff / Slide Review NO; Basophils Absolute Auto 100 /uL (0-100); Basophils Percent Auto 0.9 % (0-2); Eosinophils Absolute Auto 200 /uL (0-450); Eosinophils Percent Auto 2.4 % (2-4); Hematocrit 41.5 % (36-46); Hemoglobin 14.3 g/dL (12.0-16.0); Lymphocytes Absolute Auto 2200 /uL (1100-4500); Lymphocytes Percent Auto 31.1 % (25-40); Mean Corpuscular HGB Conc 34.5 % (30-36); Mean Corpuscular Hemoglobin 32.7 PG (26-34); Monocytes Absolute Auto 500 /uL (0-900); Monocytes Percent Auto 7.1 % (3-14); Neutrophils Absolute Auto 4200 /uL (1500-7000); Neutrophils Percent Auto 58.5 % (50-75); Platelet Count 231 X10^3/uL (150-400); Red Blood Cell Count 4.37 X10^6/uL (4.0-5.2); Red Cell Distribution Width 12.7 % (11.6-14.8); White Blood Cell Count 7.2 X10^3/uL (4.5-11.0)
[2023-08-14 08:16] LABS: Alanine Aminotransferase 39 IU/L (<35); Albumin 3.9 g/dL (3.5-5.0); Albumin Globulin Ratio 1.6 (1.0-2.8); Alkaline Phosphatase 126 U/L (38-126); Aspartate Aminotransferase 39 IU/L (14-36); BUN Creatinine Ratio 20.3 (6-22); Blood Urea Nitrogen 12 mg/dL (7-17); Calcium 8.9 mg/dL (8.4-10.2); Carbon Dioxide 25 mmol/L (22-32); Chloride 106 mmol/L (98-107); Creatine Kinase 117 U/L (30-135); Estimated Glomerular Filt Rate > 60 mL/min (>60); Globulin 2.5 g/dL (1.7-4.1); Glucose 128 mg/dL (80-110); HEMOLYSIS 47 (0-50); Sodium 135 mmol/L (137-145); Total Protein 6.4 g/dL (6.3-8.2)
[2023-08-14 08:27] LABS: Troponin I 0.023 ng/mL (0.01-0.034)
[2023-08-14] MEDS: LOSARTAN 25 MG TABLET PO (09:14)
--- NOTE | 2023-08-14 09:24 | PC.NURSE ---
Pt took her home dose of Rabeprazole DR 20mg and Myrbetriq 50mg. Okay per provider.
[2023-08-14 11:00] LABS: PTT Partial Thromboplastin Tim 104 SECONDS (25.1-36.5)
--- NOTE | 2023-08-14 14:44 | P.CONS_ITS ---
History of Present Illness Consult details Date Patient Seen: 08/14/23 Time Patient Seen: 14:45 Chief complaint: sob, f/o on labs Reason for consult: PE Requesting provider: Sheri Forbes Narrative: This is a 68 year old female with PMH of prior PE, HTN who presented with shortness of breath for the past two days, a bit more chronically has noticed more shortness of breath over the past week. She notes a chronic non-productive cough. She denies chest pain. No fever, chills, nausea, vomiting or abdominal pain. Patient had multiple subsegmental PEs in multiple lobes with possible mild R heart strain on CT. As noted in previous beauty consultant note patient was awaiting echo, which showed elevated RVSP, moderately reduced RV function, and some diastolic dysfunction as well. ProBNP was 2800 approximately. Troponin I was 0.026 (wnl) and improved to 0.023 on repeat this morning. IR at [facility] did not recommend interventions at this time. Patient desaturated to 88% with ambulation, at rest O2 values are consistently 93-94%. Medicine was asked to evaluate for admission. I discussed with human resources generalist beauty consultant, and CT findings and echo findings and labs can be consistent with some chronic component in addition to the acute portion. Given patient has had 24 hours of monitoring on heparin infusion, she is safe for discharge home at this time. Discussed extensively with the patient, whom elected for discharge home after risk and benefit discussion of observation. Meds Home Medications and Allergies Home Medications Medication Instructions Recorded Confirmed Type losartan 25 mg tablet 25 mg PO DAILY 08/14/23 08/14/23 History Allergies Allergy/AdvReac Type Severity Reaction Status Date / Time bacitracin Allergy Verified 07/09/22 09:54 [From Neosporin ([id number])] doxycycline Allergy Verified 07/09/22 09:54 neomycin Allergy Verified 07/09/22 09:54 [From Neosporin ([id number])] polymyxin B Allergy Verified 07/09/22 09:54 [From Neosporin ([id number])] Review of Systems Review of Systems Narrative: All other systems reviewed with the patient and are negative unless otherwise stated. Exam Vital Signs (past 8 hours): - 08/14/23 07:00 08/14/23 07:30 08/14/23 08:00 Temperature Pulse Rate 77 77 87 Respiratory Rate 24 25 H 26 H Blood Pressure 189/98 H 187/90 H 160/74 H Pulse Oximetry 99 97 94 Oxygen Delivery Method Oxygen Flow Rate 08/14/23 08:30 08/14/23 09:00 08/14/23 11:44 Temperature 98.0 F Pulse Rate 88 84 84 Respiratory Rate 26 H 24 22 Blood Pressure 169/80 H 155/67 H 167/81 H Pulse Oximetry 96 96 95 Oxygen Delivery Method Nasal Cannula Oxygen Flow Rate 2 08/14/23 13:14 08/14/23 13:14 08/14/23 13:43 Temperature Pulse Rate 96 H 96 H Respiratory Rate 20 Blood Pressure 150/66 H Pulse Oximetry 94 87 L Oxygen Delivery Method Nasal Cannula Nasal Cannula Oxygen Flow Rate 2 Oxygen Delivery Method Nasal Cannula Oxygen Flow Rate 2 Narrative Exam Narrative: General:? Patient is well developed and well nourished, in no distress at this time. HEENT:? Normocephalic, atraumatic, extraocular muscles intact, oral pharynx is clear and mucous membranes are moist. Neck: supple and symmetric, trachea is midline, no cervical adenopathy. Negative for JVD Chest:? Normal AP diameter and contour without kyphoscoliosis, no tachypnea, equal chest rise bilaterally. Lungs:? CTA b/l no wheezing rhonchi or rales. Cardio:?RRR no m/r/g. Abdomen: S NT ND. No CVA tenderness. Musculoskeletal:? Muscle strength and tone are equal within normal limits, no deformity. Extremities: No edema or joint effusions. No cyanosis or clubbing. Skin:? Pale,? Warm to touch,dry and intact without rashes, ulcerations or petechiae.? Neuro:? Alert and orientated x3,? sensation to touch intact in all extremities, no gross deficits noted of cranial nerves. Psych:? Patient has a well-kept appearance, appropriate affect, mental status attitude thought context and judgment are appropriate for age. Objective Labs 08/14/23 07:50 08/14/23 07:50 Labs: Laboratory Results - last 24 hr 08/13/23 08/13/23 08/14/23 12:45 21:45 03:50 WBC 7.4 RBC 4.44 Hgb 14.5 Hct 42.5 MCV 95.7 MCH 32.5 MCHC 34.0 RDW 12.7 Plt Count 235 Neut % (Auto) 69.5 Lymph % (Auto) 21.2 L [place] % (Auto) 8.4 Eos % (Auto) 0.6 L Baso % (Auto) 0.3 Neut # (Auto) 5100 Lymph # (Auto) 1600 [place] # (Auto) 600 Eos # (Auto) 0 Baso # (Auto) 0 PT 12.1 INR 1.1 APTT 30 166 H* D 95 H* D Sodium 136 L Potassium 3.9 Chloride 106 Carbon Dioxide 25 BUN 15 Creatinine 0.71 Estimated GFR > 60 BUN/Creatinine Ratio 21.1 Glucose 132 H Lactate 1.0 Calcium 9.0 Total Bilirubin 0.8 AST 38 H ALT 38 H Alkaline Phosphatase 139 H Total Creatine Kinase Troponin I 0.026 NT-Pro-B Natriuret Pep 2840 H Total Protein 6.9 Albumin 4.1 Globulin 2.8 Albumin/Globulin Ratio 1.5 08/14/23 08/14/23 07:50 10:00 WBC 7.2 RBC 4.37 Hgb 14.3 Hct 41.5 MCV 95.0 MCH 32.7 MCHC 34.5 RDW 12.7 Plt Count 231 Neut % (Auto) 58.5 Lymph % (Auto) 31.1 [place] % (Auto) 7.1 Eos % (Auto) 2.4 Baso % (Auto) 0.9 Neut # (Auto) 4200 Lymph # (Auto) 2200 [place] # (Auto) 500 Eos # (Auto) 200 Baso # (Auto) 100 PT INR APTT 104 H* Sodium 135 L Potassium 4.0 Chloride 106 Carbon Dioxide 25 BUN 12 Creatinine 0.59 Estimated GFR > 60 BUN/Creatinine Ratio 20.3 Glucose 128 H Lactate Calcium 8.9 Total Bilirubin 1.0 AST 39 H ALT 39 H Alkaline Phosphatase 126 Total Creatine Kinase 117 Troponin I 0.023 NT-Pro-B Natriuret Pep Total Protein 6.4 Albumin 3.9 Globulin 2.5 Albumin/Globulin Ratio 1.6 [facility] Medical History (Updated 08/14/23 @ 14:51 by Remington Silver DO) Pulmonary embolism HTN (hypertension) Surgical History (Updated 08/14/23 @ 14:51 by Remington Silver DO) History of knee surgery History of cholecystectomy Tobacco & Substance Use Smoking Status: Former smoker second hand exposure: No alcohol intake: current (daily wine) substance use type: does not use Assessment & Plan Assessment & Plan narrative: Patient has multiple subsegmental PEs in multiple lobes with possible mild R heart strain on CT. IR at [facility] did not recommend interventions at this time. Patient desaturated to 88% with ambulation, at rest O2 values are consistently 93-94%. Medicine was asked to evaluate for admission. I discussed with human resources generalist beauty consultant, and CT findings and echo findings and labs can be consistent with some chronic component in addition to the acute portion from PE and that given patient has had 24 hours of monitoring on heparin infusion, she is safe for discharge home at this time. Discussed extensively with the patient, whom elected for discharge home after risk and benefit discussion of continued observation or discharge home Diagnoses: 1. Multiple bilateral subsegemental PE 2. R heart systolic dysfunction 3. HTN Plan: - discussed with respiratory therapy and patient. Patient can be provided O2 tank, and will have home services arranged when able to be reached. She is not hypoxic at rest, and needs 1L with ambulation, will improve with rest quickly on observation in the emergency room. Patient was able to walk approximately 50 feet without difficulty unassisted with me, she was short of breath and O2 saturations as low as 88% on room air improved quickly to 94% when nonambulatory and standing. Discussed staying in the hospital to arrange home oxygen, and patient elected for discharge home. - starter pack xarelto 15 mg BID for 21 days followed by 20 mg daily after. Recommend lifelong anticoagulation given recurrence. Patient requests this be sent locally rather than [place] due to weekend closing. - As above discussed with pulmonology, can have outpatient follow up if needed after PCP evaluation. Recommended continued DOAC for lifelong therapy given recurrence. Code: Full, surrogate is patient's spouse I have utilized all available immediate resources to obtain, update, or review the patient's current medications. Dispo: patient admitted under inpatient status. Unclear if will be able to discharge home or possible SNF, will have PT/OT evaluations. Additional history obtained via discussions with the ER provider and pulmonology as noted above. These discussions contributed to the creation of the above assessment and plan. I have reviewed patient's presenting documentation, labs, and imaging personally.
[2023-08-14] MEDS: RIVAROXABAN 10 MG TABLET 15 MG PO ×2 (14:51→19:26)
== END 2023-08-14 19:28 | disposition home or self-care (01) ==
PROVIDERS: Emergency Medicine; Emergency Provider Emergency Medicine
DX: I26.99 Other pulmonary embolism without acute cor pulmonale (principal); Z79.01 Long term (current) use of anticoagulants; R79.89 Other specified abnormal findings of blood chemistry
CPT/HCPCS: 36415; 71275; 80053; 82550; 83605; 83880; 84484; 85025; 85610; 85730; 93005; 93010; 93306; 96365; 96366; 96375; 99285; 99291; J1644; Q9967

== ENCOUNTER → 2023-10-11 11:58 | Outpatient (CLI) | payer MEDICARE, BC, SELFPAY ==
--- NOTE | 2023-10-11 12:01 | DI.US.S_ITS ---
PROCEDURE: US PERIPH VENOUS LOW EXTREM BI INDICATIONS: HX OF PULMONARY EMBOLISM TECHNIQUE: Real-time imaging, as well as color and pulse Doppler interrogation, were performed of the deep veins of both legs from the inguinal ligament to the popliteal fossa, with documentation of the visualized calf veins. COMPARISON: None. FINDINGS: Right: The common femoral, femoral, popliteal, and the visualized calf veins are normally compressible, and free of intraluminal thrombus. Color and pulse Doppler demonstrate normal phasic intravascular flow. There is normal augmentation response to distal compression maneuver. Left: The common femoral, femoral, popliteal, and the visualized calf veins are normally compressible, and free of intraluminal thrombus. Color and pulse Doppler demonstrate normal phasic intravascular flow. There is normal augmentation response to distal compression maneuver. IMPRESSION: No findings of deep venous thrombosis in either lower extremity. Dictated by: German Zamorano M.D. on 10/11/2023 at 13:56 Approved by: German Zamorano M.D. on 10/11/2023 at 13:57
== END ==
LOC: US 11:59
PROVIDERS: PCP Family Medicine; Referring Provider Internal Medicine Pulmonary Disease; Visit Provider Internal Medicine Pulmonary Disease
DX: Z86.711 Personal history of pulmonary embolism (principal); Z09 Encounter for follow-up examination after completed treatment for conditions other than malignant neoplasm
CPT/HCPCS: 93970

== ENCOUNTER → 2024-05-16 16:59 | Outpatient (CLI) | payer MEDICARE, BC, SELFPAY ==
--- NOTE | 2024-05-16 17:01 | DI.MRI.S_ITS ---
PROCEDURE: MR LUMBAR SPINE WO CON INDICATIONS: Lower back pain TECHNIQUE: Noncontrast sagittal T1 spin echo and T2 fast echo, sagittal STIR, and T2 fast spin echo through the lumbar spine. In cases with scoliosis, additional coronal T2 fast spin echo may be performed. COMPARISON: None. FINDINGS: Image quality: Excellent. Alignment and Curvature: There is normal bony alignment. Bone Marrow: Marrow is of normal overall signal. No acute vertebral body compression fractures. Spinal Cord: Conus medullaris terminates at the T12-L1 level. Visualized cord demonstrates normal signal and size. Paraspinous Soft Tissues: No paravertebral masses. T11-T12: No canal stenosis or foraminal stenosis. T12-L1: Disc bulge. No canal stenosis or foraminal stenosis. L1-L2: Disc bulge. Facet hypertrophy. No canal stenosis or foraminal stenosis. L2-L3: Disc bulge. Facet hypertrophy. No canal stenosis or foraminal stenosis. L3-L4: Disc bulge. Facet and ligament hypertrophy. Epidural lipomatosis. There is a very small facet joint cyst anterior medially directed off of the right facet. Reference T2 sagittal image 7 of series 2 and T2 axial image 6 of series 6. This somewhat contributes to [id number] canal stenosis. L4-L5: Severe disc height loss. Mild chronic central posterior disc protrusion. Facet and ligament hypertrophy. Epidural lipomatosis. [id number] canal stenosis. Reference axial image 11 of series 6. No foraminal stenosis. L5-S1: Disc bulge. Facet hypertrophy. No canal stenosis or foraminal stenosis. IMPRESSION: 1. There is multilevel underlying facet arthropathy and there is epidural lipomatosis which somewhat contributes to canal stenosis. 2. Canal stenosis is mild to moderate at L3-L4 and L4-L5. 3. No foraminal nerve root impingement. Dictated by: Ifeanyi Purdy M.D. on 05/17/2024 at 12:04 Approved by: Ifeanyi Purdy M.D. on 05/17/2024 at 12:14
== END ==
LOC: MRI 17:00
PROVIDERS: PCP Family Medicine; Referring Provider Family Medicine; Visit Provider Family Medicine
DX: M48.061 Spinal stenosis, lumbar region without neurogenic claudication (principal); M47.816 Spondylosis without myelopathy or radiculopathy, lumbar region; M47.817 Spondylosis without myelopathy or radiculopathy, lumbosacral region; M51.370 Other intervertebral disc degeneration, lumbosacral region with discogenic back pain only; M51.360 Other intervertebral disc degeneration, lumbar region with discogenic back pain only; E88.2 Lipomatosis, not elsewhere classified
CPT/HCPCS: 72148